=== PATIENT | female | born 1990 | race Caucasian/White ===

== ENCOUNTER 2017-02-10 11:47 | Emergency (ER) | payer OTHER ==
[~2017-02-10] VITALS: Ht 152.4 cm; Wt 126.1 kg
[~2017-02-10 11:47] MED LIST: BUSPIRONE HCL10 MG PO; CITALOPRAM HBR20 MG PO; CITALOPRAM HBR40 MG PO; CYCLOBENZAPRINE10 MG PO; NORCO 10-325 T1 EACH PO; PRENATAL VITAM1 EAC7 PO; SUDAFED 12 HOU120 MG PO; TYLENOL325 MG PO; ZOFRAN ODT8 MG PO
== END 2017-02-10 12:05 | disposition home or self-care (01) ==
LOC: ED 11:47
DX: Z00.8 Encounter for other general examination (principal)

== ENCOUNTER 2017-02-20 17:01 | Emergency (ER) | payer OTHER ==
[~2017-02-20] VITALS: Ht 152.4 cm; Wt 126.1 kg
== END 2017-02-20 17:30 | disposition home or self-care (01) ==
LOC: ED 17:01
DX: Z00.8 Encounter for other general examination (principal)

== ENCOUNTER 2017-03-31 11:26 | Emergency (ER) | payer OTHER ==
[~2017-03-31] VITALS: Ht 152.4 cm; Wt 118.4 kg
[2017-03-31] MEDS ORDERED: METHYLPREDNISOLO4 M1 PO (15:35)
[2017-03-31] MEDS ORDERED: ALBUTEROL2.5 MG/3 M INH (15:35)
[2017-04-01] MEDS ORDERED: MILLIPRED DP5 MG PO (14:06)
== END 2017-03-31 15:59 | disposition home or self-care (01) ==
LOC: ED 11:26
DX: R06.02 Shortness of breath (principal); R06.2 Wheezing; G43.909 Migraine, unspecified, not intractable, without status migrainosus; Z87.891 Personal history of nicotine dependence; Z90.89 Acquired absence of other organs; Z88.0 Allergy status to penicillin; Z79.899 Other long term (current) drug therapy
CPT/HCPCS: 71020; 94640; 94644; 99283

== ENCOUNTER 2017-04-01 13:48 | Observation (INO) | payer OTHER ==
[~2017-04-01] VITALS: Ht 152.4 cm; Wt 118.4 kg
[~2017-04-01 13:48] MED LIST changes: +ALBUTEROL2.5 MG/3 M INH; +METHYLPREDNISOLO4 M1 PO
[2017-04-01] MEDS ORDERED: MILLIPRED DP5 MG PO (14:06)
--- NOTE | 2017-04-01 21:32 | NUR ---
PT ARRIVED TO ROOM 126 AT 1940. PT ON RA AT THE TIME SPO2 92-94% ON RA. SPO2 DECREASED TO 88-89%. PLACED ON OXYMASK 2L. PT UNABLE TO TOLERATE NC DUE TO ANXIETY. PT HAS SIGNIFICANT OTHER, 4 YEAR OLD AND 7 MO. BABY AT BEDSIDE. REVIEWED MEDICATIONS WITH HIGINIO AND DR TORRES. PT CURRENTLY BABY. DR TORRES REVIEWED MEDICATION SAFETY FOR . EXPLAINED TO PT. PT REQUESTS TO SAVE BREASTMILK. PUMP PROVIDED. BABY AND CHILD LEFT WITH /SIGNIFICANT OTHER FOR THE EVENING. ADMISSION ASSESSMENT COMPLETE. NO FURTHER NEEDS.
--- NOTE | 2017-04-01 23:05 | NUR ---
ASSISTED PT WITH HOSPITAL BREASTPUMP. PT REMAINS ON PULSE OX MONITOR. SPO2 91-92% ON RA.
--- NOTE | 2017-04-02 00:24 | NUR ---
PT ON OXYMASK 2L, ASLEEP. SPO2 95%, HR 89.
--- NOTE | 2017-04-02 04:26 | NUR ---
IN TO ASSESS PT AT 0246. PT ASLEEP. VS TAKEN. OXYMASK ON PT. PT USED BREASTPUMP, MILK TO FRIDGE.
--- NOTE | 2017-04-02 06:00 | NUR ---
IN TO ASSESS PT. PT UP TO BR TO VOID. PLACED ON RA TRIAL. SPO2 93% ON RA.
--- NOTE | 2017-04-02 06:04 | NUR ---
PT HAD 200ML OUT BREASTMILK.
--- NOTE | 2017-04-02 06:48 | NUR ---
PT UP TO SHOWER.
--- NOTE | 2017-04-02 07:59 | NUR ---
PT AWAKE SITTING UP IN BED EATING BREAKFAST. ASSESSMENT COMPLETED, LUNGS WITH COARSE SOUNDS AND FEW EXPIRATORY WHEEZES. C/O OF SINUS DISCOMFORT "12/24".
--- NOTE | 2017-04-02 08:08 | NUR ---
PT MEDICATED WITH TYLENOL 650 MG PO.
--- NOTE | 2017-04-02 08:41 | NUR ---
R.T. HERE AND NEB TX GIVEN.
[2017-04-02] MEDS ORDERED: CEFPODOXIME PR200 MG PO (09:22)
[2017-04-02] MEDS ORDERED: CLINDAMYCIN HC300 MG PO (09:22)
--- NOTE | 2017-04-02 09:23 | NUR ---
DR. TORRES IN TO ASSESS PT. A.M. MEDS GIVEN
[2017-04-02] MEDS ORDERED: ALBUTEROL2.5 MG/3 M INH (09:24)
[2017-04-02] MEDS ORDERED: SUDAFED 12 HOU120 MG PO (09:24)
[2017-04-02] MEDS ORDERED: DELTASONE20 MG PO (09:27)
[2017-04-02] MEDS ORDERED: FLUTICASONE PRO16 GM NAS (09:27)
[2017-04-02] MEDS ORDERED: NICORETTE4 M2 BUCCAL (09:27)
[2017-04-02] MEDS ORDERED: TRUNEB NEBULIZ1 EACH INH (09:31)
--- NOTE | 2017-04-02 10:40 | NUR ---
FAXED CHART NOTES INCLUDING H AND P, AND DC SUMMARY AND ORDER TO [facility] FOR A NEBULIZER FOR PT. I CALLED AND TALKED WITH STAFF AT [facility] ABOUT PT COMING TO MANAGER SEARCH NEBULIZER
--- NOTE | 2017-04-02 10:40 | NUR ---
SALINE LOCK DC'D WITH CATH INTACT. PHARMACIST IN TO DISCUSS DISCHARGE MEDS. DC INSTRUCTIONS GIVEN AND PT STATES UNDERSTANDING. PT DC'D AMBULATORY WITH PLANT ATTENDANT.
== END 2017-04-02 10:45 | disposition home or self-care (01) ==
LOC: ED 13:48 → MS 13:49 → CCU 13:49
PROVIDERS: ADMIT Internal Medicine
DX: J45.901 Unspecified asthma with (acute) exacerbation (principal); J01.41 Acute recurrent pansinusitis; B96.89 Other specified bacterial agents as the cause of diseases classified elsewhere; F41.8 Other specified anxiety disorders; E66.9 Obesity, unspecified; Z88.0 Allergy status to penicillin; Z79.52 Long term (current) use of systemic steroids; Z79.899 Other long term (current) drug therapy; Z87.891 Personal history of nicotine dependence; Z23 Encounter for immunization
CPT/HCPCS: 80053; 83605; 85025; 90674; 94640; 94644; 94667; 96374; 96376; 99285; G0008; G0378; J2920; J2930

== ENCOUNTER → 2017-08-09 | Emergency (ER) | payer OTHER ==
[~2017-08-09] VITALS: Ht 152.4 cm; Wt 118.4 kg
[~2017-08-09] MED LIST changes: +CEFPODOXIME PR200 MG PO; +CELEXA40 MG PO; +CLINDAMYCIN HC300 MG PO; +DELTASONE20 MG PO; +FLUTICASONE PRO16 GM NAS; +MILLIPRED DP5 MG PO; +NICORETTE4 M2 BUCCAL; +OXYCODONE HCL5 MG PO; +RA FISH OIL 1,1 EAC2 PO; +SYMBICORT 16010.2 GM INH; +TRUNEB NEBULIZ1 EACH INH; +VENTOLIN HFA18 GM
== END ==
LOC: ED 23:51
DX: J45.909 Unspecified asthma, uncomplicated (principal); J06.9 Acute upper respiratory infection, unspecified; Z87.891 Personal history of nicotine dependence; Z88.0 Allergy status to penicillin; Z79.899 Other long term (current) drug therapy
CPT/HCPCS: 99282; J1100

== ENCOUNTER 2017-09-10 07:00 | Day surgery (SDC) | payer OTHER ==
[~2017-09-10] VITALS: Ht 152.4 cm; Wt 124.7 kg
[~2017-09-10 07:00] MED LIST changes: -OXYCODONE HCL5 MG PO
--- NOTE | 2017-09-10 09:54 | NUR ---
09/10/17 0954 Amanda De Leon 0945 PATIENT ARRIVES TO PACU AWAKE, BUT DROWSY. RESP EVEN AND UNLABORED, COARSE LUNG SOUNDS WITH WHEEZING. PATIENT FEELS LIKE SHE CAN'T BREATHE BECAUSE SHE CANT BREATHE THROUGH HER NOSE, EXPLAINED TO PATIENT SHE HAS PACKING IN HER NOSE WHICH CANNOT BE REMOVED UNTIL TOMORROW BY THE DR IN THE OFFICE. PATIENT AGREES, DENIES PAIN OR NAUSEA. 0948 DUONEB STARTED PER FARM CREW MEMBER REQUEST. 0950 PATIENT SITTING UP ON STRETCHER. CONTINUES TO BE UPSET THAT SHE CANNOT BREATHE THROUGH HER NOSE. ALSO STARTING TO HAVE PAIN IN NOSE. DENIES NAUSEA.
--- NOTE | 2017-09-10 11:29 | NUR ---
LE 1125: PT ARRIVED FROM PACU, AWAKE TALKING WITH STAFF. PT C/O BEING HOT, COLD AIR PLACED. DENIES NAUSEA. C/O 8/10 HEAD AND NECK PAIN. ADVISE PT IF SHE IS ABLE TO HAVE SOME FOOD WILL INSPECTOR RAW QUARTZ ORAL PAIN MEDICATION. WATER, SODA AND JELLO GIVEN. RX GIVEN TO TO TAKE TO PHARMACY. VITALS STABLE, NO FURTHER NEEDS. CALL LIGHT IN REACH.
--- NOTE | 2017-09-10 11:31 | NUR ---
LE 1055 IN TO CHECK ON PT, PT EATING. DENIES NAUSEA. PAIN MEDICATION GIVEN. NO FURTHER NEEDS AT THIS TIME. CALL LIGHT IN REACH. PT WATCHING TV AND TALKING WITH AT BEDSIDE.
--- NOTE | 2017-09-10 11:44 | NUR ---
LE 1130 IN TO CHECK ON PT, VITALS TAKEN. VITALS TAKEN, STABLE. PT ASKING IF SHE CAN GO HOME. PT ASSISTED TO SIDE OF BED. DENIES DIZZINESS OR NAUSEA. PT ASSISTED TO STAND AND AMBULATE, TOLERATED WELL. IV DC'D. PT DRESSING WITH THE HELP OF . TOLERATED WELL. DISCHARGE INSTRUCTION AND FOLLOW UP APPOINTMENT GIVEN. ALL QUESTIONS ANSWERED FOR PT AND BOYFRIEND. DISCUSSED LEAVING PACK UNTIL APPOINTMENT TOMORROW. PT UNDERSTANDS. PT AMBULATES TO , WHEELED OUT BY VOLUNTEER.
--- NOTE | 2017-10-01 13:32 | OR ---
[facility] [address], [place] [address] Signed DATE OF OPERATION: 09/10/2017 SURGEON: Akbar Flowers MD PREOPERATIVE DIAGNOSES: 1. Septal deformity. 2. Inferior turbinate hypertrophy. 3. Bilateral ethmoid sinusitis. POSTOPERATIVE DIAGNOSES: 1. Septal deformity. 2. Inferior turbinate hypertrophy. 3. Bilateral ethmoid sinusitis. PROCEDURES: 1. Septoplasty. 2. Cautery inferior turbinates. 3. Bilateral intranasal ethmoidectomy. ANESTHESIA: General orotracheal; BALLPOINT PEN CARTRIDGE TESTER, Lida Walker. PREOPERATIVE HISTORY: Alonso is a 27-year-old lady with a long history of sinus nasal problems. She has inferior turbinate hypertrophy, unresponsive to appropriate medications causing nasal obstruction, also septal deformity, chronic sinusitis unresolved after appropriate medications with CT findings positive for ethmoid opacification. She was taken to the operating for the above-mentioned procedures. OPERATIVE PROCEDURE AND FINDINGS: After informed consent, the patient was taken to the operating room, placed in supine position, where general orotracheal anesthesia was induced. The patient and procedure were verified. The preop CT was viewed throughout. The patient received preoperative intranasal oxymetazoline and intravenous Ancef. Headlight speculum exam of the nasal cavity showed good decongestion of the inferior turbinates, septal deformity on the right side obstructive. A 1% lidocaine with epinephrine was injected on the right side of the septum over the septal deformity. Mucosa was elevated with a Lenora elevator. All deviated septal bone cartilage was then excised with the Anderson. The septum was medialized and airway improved in this manner. Electronically Signed By: AKBAR FLOWERS MD 10/01/17 1332 PATIENT NAME: ALONSO MCKEON OPERATIVE REPORT DATE OF : [birth year] REPORT #: [id number] PHYSICIAN: AKBAR FLOWERS MD PCP: ANJU MO REPORT IS CONFIDENTIAL AND NOT TO BE RELEASED WITHOUT AUTHORIZATION [facility] [address], [place] [address] Signed The ethmoidectomy was then performed starting on the left side. The middle turbinate was medialized. Ethmoid bulla taken down with the Anderson. Anterior ethmoid air cells were opened with the Anderson. There was mild mucosal thickening. The middle meatal antrostomy was made with a curved ring curette and the antrostomy widened with the Anderson. The same ethmoid procedure was performed on the right side. A Marshall pack coated with Neosporin was placed one on each side in the middle meatus. Inferior turbinates were then cauterized starting on the right side with a long handle needle point cautery. Multiple passes submucosal in the inferior turbinate starting anteriorly extending all the way posteriorly on the medial and inferior surface. Excellent decongestion of the inferior turbinate was obtained in this manner. Minimal bleeding stopped afterwards. The same procedure on the left inferior turbinate. Trimmed Merocel pack was then placed, one piece on each side, tied anteriorly over a pad. The pharynx was suctioned clear of blood and secretions. The patient was then awakened, extubated, and transported to the recovery room in good condition. COMPLICATIONS: No complications. BLOOD LOSS: Minimal. SPECIMEN: To pathology. DRAINS: No drains. PACKING: Two pieces of Merocel, each nostril. Akbar Flowers MD GC/MODL /[id number] Electronically Signed By: AKBAR FLOWERS MD 10/01/171331 PATIENT NAME: ALONSO MCKEON OPERATIVE REPORT DATE OF : [birth year] REPORT #: [id number] PHYSICIAN: AKBAR FLOWERS MD PCP: ANJU MO REPORT IS CONFIDENTIAL AND NOT TO BE RELEASED WITHOUT AUTHORIZATION [facility] [address] [place] [address] [place], [place] [address] Signed Copies: ~ Electronically Signed By: AKBAR FLOWERS MD 10/01/171331 PATIENT NAME: ALONSO MCKEON OPERATIVE REPORT DATE OF : [birth year] REPORT #: [id number] PHYSICIAN: AKBAR FLOWERS MD PCP: ANJU MO REPORT IS CONFIDENTIAL AND NOT TO BE RELEASED WITHOUT AUTHORIZATION
== END 2017-09-10 11:40 | disposition home or self-care (01) ==
LOC: DS 07:00
PROVIDERS: Otolaryngology
PROC: 095L0ZZ Destruction of Nasal Turbinate, Open Approach (ICD-10-PCS; 2017-09-10)
PROC: 09BM0ZZ Excision of Nasal Septum, Open Approach (ICD-10-PCS; 2017-09-10)
PROC: 09BV0ZZ Excision of Left Ethmoid Sinus, Open Approach (ICD-10-PCS; principal; 2017-09-10 08:00)
PROC: 09BU0ZZ Excision of Right Ethmoid Sinus, Open Approach (ICD-10-PCS; 2017-09-10 08:00)
PROC: 095L0ZZ Destruction of Nasal Turbinate, Open Approach (ICD-10-PCS; 2017-09-10 08:00)
DX: J32.2 Chronic ethmoidal sinusitis (principal); J34.2 Deviated nasal septum; J34.3 Hypertrophy of nasal turbinates; J33.9 Nasal polyp, unspecified; F17.210 Nicotine dependence, cigarettes, uncomplicated; J45.909 Unspecified asthma, uncomplicated; F32.9 Major depressive disorder, single episode, unspecified; Z88.0 Allergy status to penicillin; Z79.899 Other long term (current) drug therapy
CPT/HCPCS: 00160; 88305; 88311; J0330; J0690; J1100; J2250; J2270; J2405; J2704; J3010; J7120

== ENCOUNTER 2017-09-13 20:14 | Emergency (ER) | payer OTHER ==
[~2017-09-13] VITALS: Ht 152.4 cm; Wt 124.7 kg
[2017-09-13] MEDS ORDERED: OXYCODONE HCL5 MG PO (20:27)
== END 2017-09-14 00:52 | disposition home or self-care (01) ==
LOC: ED 20:14
DX: Z76.0 Encounter for issue of repeat prescription (principal); G89.18 Other acute postprocedural pain; J34.89 Other specified disorders of nose and nasal sinuses; F32.9 Major depressive disorder, single episode, unspecified; F41.9 Anxiety disorder, unspecified; J45.909 Unspecified asthma, uncomplicated; E78.00 Pure hypercholesterolemia, unspecified; Z88.0 Allergy status to penicillin; Z88.5 Allergy status to narcotic agent; Z79.899 Other long term (current) drug therapy; Z79.51 Long term (current) use of inhaled steroids
CPT/HCPCS: 96372; 99282; J1885

== ENCOUNTER 2017-12-20 11:40 | Emergency (ER) | payer OTHER ==
[~2017-12-20] VITALS: Ht 152.4 cm; Wt 124.7 kg
[~2017-12-20 11:40] MED LIST changes: +OXYCODONE HCL5 MG PO
[2017-12-20] MEDS ORDERED: IPRAT-ALBUT 0.5-3 ML INH (13:40)
[2017-12-20] MEDS ORDERED: PREDNISONE20 MG PO (13:40)
[2017-12-20] MEDS ORDERED: FLONASE ALLERG9.9 ML NAS (13:40)
== END 2017-12-20 13:53 | disposition home or self-care (01) ==
LOC: ED 11:40
DX: J45.901 Unspecified asthma with (acute) exacerbation (principal); F32.9 Major depressive disorder, single episode, unspecified; F41.9 Anxiety disorder, unspecified; E78.00 Pure hypercholesterolemia, unspecified; F17.200 Nicotine dependence, unspecified, uncomplicated; Z88.0 Allergy status to penicillin; Z88.5 Allergy status to narcotic agent; Z79.51 Long term (current) use of inhaled steroids; Z79.899 Other long term (current) drug therapy
CPT/HCPCS: 94640; 99283; J7512

== ENCOUNTER 2018-01-01 14:51 | Emergency (ER) | payer OTHER ==
[~2018-01-01] VITALS: Ht 152.4 cm; Wt 131.5 kg
[~2018-01-01 14:51] MED LIST changes: +FLONASE ALLERG9.9 ML NAS; +IPRAT-ALBUT 0.5-3 ML INH; +PREDNISONE20 MG PO
[2018-01-01] MEDS ORDERED: PROTONIX40 MG PO (17:26)
== END 2018-01-01 17:46 | disposition home or self-care (01) ==
LOC: ED 14:51
DX: R10.9 Unspecified abdominal pain (principal); F32.9 Major depressive disorder, single episode, unspecified; F41.9 Anxiety disorder, unspecified; F17.200 Nicotine dependence, unspecified, uncomplicated; Z88.0 Allergy status to penicillin; Z88.5 Allergy status to narcotic agent
CPT/HCPCS: 76705; 80053; 81001; 82150; 83690; 84703; 85025; 96361; 96374; 96375; 99284; J1170; J1885; J2405; J7030

== ENCOUNTER 2018-02-05 21:18 | Emergency (ER) | payer OTHER ==
[~2018-02-05] VITALS: Ht 152.4 cm; Wt 127.0 kg
[~2018-02-05 21:18] MED LIST changes: +PROTONIX40 MG PO
== END 2018-02-05 23:22 | disposition home or self-care (01) ==
LOC: ED 21:18
DX: R10.9 Unspecified abdominal pain (principal); G43.909 Migraine, unspecified, not intractable, without status migrainosus; F32.9 Major depressive disorder, single episode, unspecified; F41.9 Anxiety disorder, unspecified; E78.00 Pure hypercholesterolemia, unspecified; F17.200 Nicotine dependence, unspecified, uncomplicated; Z88.0 Allergy status to penicillin; Z88.5 Allergy status to narcotic agent; Z79.899 Other long term (current) drug therapy
CPT/HCPCS: 74176; 81001; 84703; 99284

== ENCOUNTER 2018-02-08 21:19 | Emergency (ER) | payer OTHER ==
[~2018-02-08] VITALS: Ht 152.4 cm; Wt 127.0 kg
== END 2018-02-08 21:47 | disposition home or self-care (01) ==
LOC: ED 21:19
DX: R10.9 Unspecified abdominal pain (principal); F17.200 Nicotine dependence, unspecified, uncomplicated; Z88.0 Allergy status to penicillin; Z88.5 Allergy status to narcotic agent; Z79.899 Other long term (current) drug therapy
CPT/HCPCS: 99283

== ENCOUNTER 2022-10-15 16:32 | Emergency (ER) | payer MEDICAID ==
[~2022-10-15] VITALS: Ht 152.4 cm; Wt 105.7 kg
--- NOTE | ~2022-10-15 | EKG ---
[facility] [address] [facility] [place], [place] [address] Draft EK completed, results pending confirmation PATIENT NAME: ALONSO MCKEON Electrocardiogram DATE OF : [birth year] PHYSICIAN: PRELIMINARY REPORT #: [id number] REPORT IS CONFIDENTIAL AND NOT TO BE RELEASED WITHOUT AUTHORIZATION
[2022-10-15] MEDS ORDERED: CYCLOBENZAPRINE10 MG PO (18:01)
[2022-10-15 19:50] VITALS: BP 120/52
== END 2022-10-15 19:51 | disposition home or self-care (01) ==
LOC: ED 16:32
DX: G43.909 Migraine, unspecified, not intractable, without status migrainosus (principal); R07.89 Other chest pain; J45.909 Unspecified asthma, uncomplicated; Z88.0 Allergy status to penicillin; Z87.891 Personal history of nicotine dependence; Z88.5 Allergy status to narcotic agent
CPT/HCPCS: 36415; 71045; 80053; 83735; 84484; 85025; 85379; 85610; 93005; 93010; J1200; J1885; J2765; J3030; J7030

== ENCOUNTER 2022-11-13 11:37 | Emergency (ER) | payer OTHER ==
[~2022-11-13] VITALS: Ht 152.4 cm; Wt 108.0 kg
--- NOTE | ~2022-11-13 | EKG ---
[facility] [address] [facility] [place], [place] [address] Draft EK completed, results pending confirmation PATIENT NAME: ALONSO MCKEON Electrocardiogram DATE OF : [birth year] PHYSICIAN: PRELIMINARY REPORT #: [id number] REPORT IS CONFIDENTIAL AND NOT TO BE RELEASED WITHOUT AUTHORIZATION
--- OUTSIDE RECORDS SUMMARY | 2022-11-13 11:44 | XMS ---
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 Care History Medical/Surgical 02/10/2018 [facility] - CHW CALLED DR CORREIA DISCUSSED URGENCY OF PATIENT BEING SEEN AND ESTABLISHED WITH A PCP. - PATIENT NOW HAS AN APT ON 02/12/18 @ 2:30 TO BE ESTABLISHED WITH DR CORREIA PATIENT PCP. 02/06/2018 [facility] - Patient is currently established with [facility]. If patient is seen in the ED during business hours. Please contact CHWs at [facility]. - PATIENT HAS AN APT ON 03/18/[address] CORREIA PATIENT PCP. Care Recommendation: This patient has had 5 or more Emergency Department visits in the last 12 months.\T\nbsp; Patient requires education on the scope and purpose of the ED as an acute care provider not a Primary Care Provider and should not be utilized for chronic conditions.\T\nbsp; These are guidelines and the provider should exercise clinical judgment when providing care. E.D. VISIT COUNT (12 MO.) 1 [facility] H. 2 [facility]. TOTAL 3 NOTE: Visits indicate total known visits. ED/UCC VISIT TRACKING (12 MO.) 11/13/2022 11:38 [facility] TYPE: Emergency COMPLAINT: - CHEST PAIN, R ARM PAIN 10/15/2022 16:33 [facility] TYPE: Emergency COMPLAINT: - CHEST PAIN DIAGNOSES: - Allergy status to narcotic agent - Allergy status to penicillin - Headache, unspecified - Migraine, unspecified, not intractable, without status migrainosus - Other chest pain - Personal history of nicotine dependence - Unspecified asthma, uncomplicated 12/21/2021 18:25 [facility]. TYPE: Emergency COMPLAINT: - chest pain DIAGNOSES: - Cardiac arrhythmia, unspecified - Cardiomegaly - Chest pain, unspecified - Morbid (severe) obesity due to excess calories - chest pain INPATIENT VISIT TRACKING (12 MO.) No inpatient visits to display in this time frame [email or web address]
[2022-11-13] MEDS ORDERED: BUSPIRONE HCL10 MG PO (11:58)
[2022-11-13] MEDS ORDERED: BUDESONIDE-FO10.2 G1 INH (11:58)
[2022-11-13] MEDS ORDERED: VENTOLIN HFA18 GM INH (11:58)
[2022-11-13 14:09] VITALS: BP 126/92
== END 2022-11-13 14:11 | disposition home or self-care (01) ==
LOC: ED 11:37
DX: M79.601 Pain in right arm (principal); M25.511 Pain in right shoulder; R07.9 Chest pain, unspecified; J45.909 Unspecified asthma, uncomplicated; Z87.891 Personal history of nicotine dependence; Z88.0 Allergy status to penicillin; Z88.5 Allergy status to narcotic agent; Z79.899 Other long term (current) drug therapy
CPT/HCPCS: 36415; 84484; 85025; 93005; 93010; J1885

== ENCOUNTER 2022-12-21 11:28 | Emergency (ER) | payer OTHER ==
[~2022-12-21] VITALS: Ht 152.4 cm; Wt 112.3 kg
--- OUTSIDE RECORDS SUMMARY | ~2022-12-21 | XMS | Continuity of Care Document ---
Demographics + + + | Address | [address] | | | [place] [address] | + + + | Preferred Language | Unknown | + + + | Marital Status | Never | + + + | Mandaeism Affiliation | Unknown | + + + | Race | White | + + + | Ethnic Group | Not or | + + + Author + + + | Author | [facility] | + + + | Organization | [facility] | + + + | Address | [address] [facility] | | | [place] [address] | + + + | Phone | | + + + Care Team Providers + + + + | Care Disability Manager Name | Role | Phone | + + + + Unavailable | Unavailable | + + + + Unavailable | Unavailable | + + + + Allergies and Intolerances + + + + + | date | description | facility | type | + + + + + | (no date) | Urticaria | [facility] (unknown[facility] | | + + + + + | (no date) | Hydrocodone | [facility] | (unknown) | | | | Hospital | | + + + + + | (no date) | Mild | [facility] | (unknown) | | | [facility] Hospital | | + + + + + | (no date) | Hydrocodone | [facility] | (unknown) | | | | Hospital | | + + + + + | (no date) | Hydrocodone | [facility] | (unknown) | | | | Hospital | | + + + + + | (no date) | Penicillin | [facility] | (unknown) | | | [facility] Hospital | | + + + + + | (no date) | Penicillin | [facility] | (unknown) | | | | Hospital | | + + + + + | (no date) | Penicillin | [facility] | (unknown) | | | | Hospital | | + + + + + | (no date) | Penicillin | [facility] | (unknown) | | | | Hospital | | + + + + + Encounters No information. Functional Status No information. Immunizations + + + + | date | description | facility | + + + + | 2017-04-02 00:00 | Influenza, Seasonal, | [facility] | | | Injectable, Preservative | | | | Free | | + + + + Medications + + + + | date | description | facility | + + + + | 2022-10-15 00:00 | OXYCODONE HCL | [facility] | + + + + | 2022-11-13 00:00 | OXYCODONE HCL | [facility] | + + + + | 2017-04-02 00:00 | PSEUDOEPHEDRINE HCL | [facility] | + + + + | 2022-10-15 00:00 | PSEUDOEPHEDRINE HCL | [facility] | + + + + | 2022-11-13 00:00 | PSEUDOEPHEDRINE HCL | [facility] | + + + + | 2022-10-15 00:00 | PREDNISOLONE | [facility] | + + + + | 2022-11-13 00:00 | PREDNISOLONE | [facility] | + + + + | 2022-10-15 00:00 | BUDESONIDE/FORMOTEROL | [facility] | | | FUMARATE | | + + + + | 2022-11-13 00:00 | BUDESONIDE/FORMOTEROL | [facility] | | | FUMARATE | | + + + + | 2022-11-13 00:00 | Budesonide/Formoterol | [facility] | | | Fumarate | | + + + + | 2017-04-02 00:00 | FLUTICASONE PROPIONATE 50 | [facility] | | | MCG | | + + + + | 2022-10-15 00:00 | CITALOPRAM HYDROBROMIDE | [facility] | + + + + | 2022-11-13 00:00 | CITALOPRAM HYDROBROMIDE | [facility] | + + + + | 2017-04-02 00:00 | PREDNISONE | [facility] | + + + + | 2017-04-02 00:00 | CLINDAMYCIN HCL | [facility] | + + + + | 2017-04-02 00:00 | CEFPODOXIME PROXETIL | [facility] | + + + + | 2022-10-15 00:00 | CITALOPRAM HYDROBROMIDE | [facility] | + + + + | 2022-11-13 00:00 | CITALOPRAM HYDROBROMIDE | [facility] | + + + + | 2017-12-20 00:00 | predniSONE | [facility] | + + + + | 2017-03-31 00:00 | ALBUTEROL SULFATE | [facility] | + + + + | 2022-10-15 00:00 | CYCLOBENZAPRINE HCL | [facility] | + + + + | 2022-11-13 00:00 | CYCLOBENZAPRINE HCL | [facility] | + + + + | 2022-10-15 00:00 | HYDROCODONE/APAP | [facility] | | | (10-325MG) | | + + + + | 2022-11-13 00:00 | HYDROCODONE/APAP | [facility] | | | (10-325MG) | | + + + + | 2022-11-13 00:00 | ALBUTEROL SULFATE | [facility] | + + + + | 2022-10-15 00:00 | BUSPIRONE HCL | [facility] | + + + + | 2022-11-13 00:00 | BUSPIRONE HCL | [facility] | + + + + | 2022-10-15 00:00 | ONDANSETRON | [facility] | + + + + | 2022-11-13 00:00 | ONDANSETRON | [facility] | + + + + | 2017-04-02 00:00 | Nicotine Polacrilex | [facility] | + + + + Problems + + + + | date | description | facility | + + + + | 2015-11-21 00:00 | Migraine headache | [facility] | + + + + | 2017-02-10 00:00 | Encounter for medical | [facility] | | | screening examination | | + + + + | 2017-03-31 00:00 | Shortness of breath | [facility] | + + + + | 2017-03-31 00:00 | Wheezing on auscultation | [facility] | + + + + | 2017-04-01 00:00 | Exacerbation of asthma | [facility] | + + + + | 2017-04-02 00:00 | Asthma with status | [facility] | | | asthmaticus | | + + + + | 2017-08-10 00:00 | Upper respiratory | [facility] | | | infection with cough and | | | | congestion | | + + + + | 2017-08-10 00:00 | Acute asthma | [facility] | + + + + | 2017-09-14 00:00 | Postoperative pain | [facility] | + + + + | 2017-09-14 00:00 | Pain of nose | [facility] | + + + + | 2017-09-14 00:00 | Encounter for medication | [facility] | | | refill | | + + + + | 2018-01-01 00:00 | Nonspecific abdominal pain | [facility] | | | | | + + + + | 2018-02-05 00:00 | Right flank pain | [facility] | + + + + | 2022-10-15 00:00 | Chest wall pain | [facility] | + + + + | 2022-11-13 00:00 | Pain of right upper | [facility] | | | extremity | | + + + + Procedures No information. Results/Labs +--------+--------+ + +---------+--------+ + | test | date | author | facility | value | unit | | | | | | | | | interpreta | | | | | | | | tion | +--------+--------+ + +---------+--------+ + + + | Result panel 1 | + + + + + + +---------+ + + | (unknown) | (no date) | (unknown) | [facility]no | (units | (unknown) | | [facility] value) | [facility]) | [facility] | | | | + + + + +---------+ + + + + | Result panel 2 | + + + + + + +---------+ + + | (unknown) | (no date) | (unknown) | [facility] | (no | (units | (unknown) | | | | [facility] | value) | unknown) | | | | [facility] | | | | + + + + +---------+ + + + + | Result panel 3 | + + + + + + +---------+ + + | (unknown) | (no date) | (unknown) | [facility] | (no | (units | (unknown) | | | | [facility] | value) | unknown) | | | | [facility] | | | | + + + + +---------+ + + + + | Result panel 4 | + + + + + + +---------+ + + | (unknown) | (no date) | (unknown) | [facility] | (no | (units | (unknown) | | | | [facility] | value) | unknown) | | | | [facility] | | | | + + + + +---------+ + + + + | Result panel 5 | + + + + + + +---------+ + + | (unknown) | (no date) | (unknown) | [facility] | (no | (units | (unknown) | | | | [facility] | value) | unknown) | | | | [facility] | | | | + + + + +---------+ + + + + | Result panel 6 | + + + + + + +---------+ + + | (unknown) | (no date) | (unknown) | [facility] | (no | (units | (unknown) | | | | [facility] | value) | unknown) | | | | [facility] | | | | + + + + +---------+ + + + + | Result panel 7 | + + + + + + +---------+ + + | (unknown) | (no date) | (unknown) | [facility] | (no | (units | (unknown) | | | | | [facility] | value) | unknown) | | | | | [facility] | | | | + + + + +---------+ + + + + | Result panel 8 | + + + + + + +---------+ + + | (unknown) | (no date) | (unknown) | [facility] | (no | (units | (unknown) | | | | | [facility] | value) | unknown) | | | | | [facility] | | | | + + + + +---------+ + + + + | Result panel 9 | + + + + + + +---------+ + + | (unknown) | (no date) | (unknown) | [facility] | (no | (units | (unknown) | | | | | [facility] | value) | unknown) | | | | | [facility] | | | | + + + + +---------+ + + + + | Result panel 10 | + + + + + + +---------+ + + | (unknown) | (no date) | (unknown) | [facility] | (no | (units | (unknown) | | | | | [facility] | value) | unknown) | | | | | [facility] | | | | + + + + +---------+ + + + + | Result panel 11 | + + + + + + +---------+ + + | (unknown) | (no date) | (unknown) | [facility] | (no | (units | (unknown) | | | | | [facility] | value) | unknown) | | | | | [facility] | | | | + + + + +---------+ + + + + | Result panel 12 | + + + + + + +---------+ + + | (unknown) | (no date) | (unknown) | [facility] | (no | (units | (unknown) | | | | | [facility] | value) | unknown) | | | | | [facility] | | | | + + + + +---------+ + + + + | Result panel 13 | + + + + + + +---------+ + + | (unknown) | (no date) | (unknown) | [facility] | (no | (units | (unknown) | | | | | [facility] | value) | unknown) | | | | | [facility] | | | | + + + + +---------+ + + + + | Result panel 14 | + + + + + + +---------+ + + | (unknown) | (no date) | (unknown) | [facility] | (no | (units | (unknown) | | | | | [facility] | value) | unknown) | | | | | [facility] | | | | + + + + +---------+ + + + + | Result panel 15 | + + + + + + +---------+ + + | (unknown) | (no date) | (unknown) | [facility] | (no | (units | (unknown) | | | | | [facility] | value) | unknown) | | | | | [facility] | | | | + + + + +---------+ + + + + | Result panel 16 | + + + + + + +---------+ + + | (unknown) | (no date) | (unknown) | [facility] | (no | (units | (unknown) | | | | | [facility] | value) | unknown) | | | | | [facility] | | | | + + + + +---------+ + + + + | Result panel 17 | + + + + + + +---------+ + + | (unknown) | (no date) | (unknown) | [facility] | (no | (units | (unknown) | | | | | [facility] | value) | unknown) | | | | | [facility] | | | | + + + + +---------+ + + + + | Result panel 18 | + + + + + + +---------+ + + | (unknown) | (no date) | (unknown) | [facility] | (no | (units | (unknown) | | | | | [facility] | value) | unknown) | | | | | [facility] | | | | + + + + +---------+ + + + + | Result panel 19 | + + + + + + +---------+ + + | (unknown) | (no date) | (unknown) | [facility] | (no | (units | (unknown) | | | | | [facility] | value) | unknown) | | | | | [facility] | | | | + + + + +---------+ + + + + | Result panel 20 | + + + + + + +---------+ + + | (unknown) | (no date) | (unknown) | [facility] | (no | (units | (unknown) | | | | | [facility] | value) | unknown) | | | | | [facility] | | | | + + + + +---------+ + + + + | Result panel 21 | + + + + + + +---------+ + + | (unknown) | (no date) | (unknown) | [facility] | (no | (units | (unknown) | | | | | [facility] | value) | unknown) | | [facility] | | [facility] | | | | + + + + +---------+ + + + + | Result panel 22 | + + + + + + +---------+ + + | (unknown) | (no date) | (unknown) | [facility] | (no | (units | (unknown) | | | | | [facility] | value) | unknown) | | | | | [facility] | | | | + + + + +---------+ + + + + | Result panel 23 | + + + + + + +---------+ + + | (unknown) | (no date) | (unknown) | [facility] | (no | (units | (unknown) | | | | | [facility] | value) | unknown) | | | | | [facility] | | | | + + + + +---------+ + + + + | Result panel 24 | + + + + + + +---------+ + + | (unknown) | (no date) | (unknown) | [facility] | (no | (units | (unknown) | | | | | [facility] | value) | unknown) | | [facility] | | [facility] | | | | + + + + +---------+ + + + + | Result panel 25 | + + + + + + +---------+ + + | (unknown) | (no date) | (unknown) | [facility] | (no | (units | (unknown) | | | | | [facility] | value) | unknown) | | | | | [facility] | | | | + + + + +---------+ + + + + | Result panel 26 | + + + + + + +---------+ + + | (unknown) | (no date) | (unknown) | [facility] | (no | (units | (unknown) | | | | | [facility] | value) | unknown) | | | | | [facility] | | | | + + + + +---------+ + + + + | Result panel 27 | + + + + + + +---------+ + + | (unknown) | (no date) | (unknown) | [facility] | (no | (units | (unknown) | | | | | [facility] | value) | unknown) | | | | | [facility] | | | | + + + + +---------+ + + + + | Result panel 28 | + + + + + + +---------+ + + | (unknown) | (no date) | (unknown) | [facility] | (no | (units | (unknown) | | | | | [facility] | value) | unknown) | | [facility] | | [facility] | | | | + + + + +---------+ + + + + | Result panel 29 | + + + + + + +---------+ + + | (unknown) | (no date) | (unknown) | [facility] | (no | (units | (unknown) | | | | | [facility] | value) | unknown) | | | | | [facility] | | | | + + + + +---------+ + + + + | Result panel 30 | + + + + + + +---------+ + + | (unknown) | (no date) | (unknown) | [facility] | (no | (units | (unknown) | | | | | [facility] | value) | unknown) | | | | | [facility] | | | | + + + + +---------+ + + + + | Result panel 31 | + + + + + + +---------+ + + | (unknown) | (no date) | (unknown) | [facility] | (no | (units | (unknown) | | | | | [facility] | value) | unknown) | | | | | [facility] | | | | + + + + +---------+ + + + + | Result panel 32 | + + + + + + +---------+ + + | (unknown) | (no date) | (unknown) | [facility] | (no | (units | (unknown) | | | | | [facility] | value) | unknown) | | | | | [facility] | | | | + + + + +---------+ + + + + | Result panel 33 | + + + + + + +---------+ + + | (unknown) | (no date) | (unknown) | [facility] | (no | (units | (unknown) | | | | | [facility] | value) | unknown) | | | | | [facility] | | | | + + + + +---------+ + + + + | Result panel 34 | + + + + + + +---------+ + + | (unknown) | (no date) | (unknown) | [facility] | (no | (units | (unknown) | | | | | [facility] | value) | unknown) | | [facility] | | [facility] | | | | + + + + +---------+ + + + + | Result panel 35 | + + + + + + +---------+ + + | (unknown) | (no date) | (unknown) | [facility] | (no | (units | (unknown) | | | | | [facility] | value) | unknown) | | [facility] | | [facility] | | | | + + + + +---------+ + + + + | Result panel 36 | + + + + + + +---------+ + + | (unknown) | (no date) | (unknown) | [facility] | (no | (units | (unknown) | | | | | [facility] | value) | unknown) | | [facility] | | [facility] | | | | + + + + +---------+ + + + + | Result panel 37 | + + + + + + +---------+ + + | (unknown) | (no date) | (unknown) | [facility] | (no | (units | (unknown) | | | | | [facility] | value) | unknown) | | | | | [facility] | | | | + + + + +---------+ + + + + | Result panel 38 | + + + + + + +---------+ + + | (unknown) | (no date) | (unknown) | [facility] | (no | (units | (unknown) | | | | | [facility] | value) | unknown) | | | | | [facility] | | | | + + + + +---------+ + + + + | Result panel 39 | + + + + + + +---------+ + + | (unknown) | (no date) | (unknown) | [facility] | (no | (units | (unknown) | | | | | [facility] | value) | unknown) | [facility] | | [facility] | | | | + + + + +---------+ + + + + | Result panel 40 | + + + + + + +---------+ + + | (unknown) | (no date) | (unknown) | [facility] | (no | (units | (unknown) | | | | | [facility] | value) | unknown) | | | | | [facility] | | | | + + + + +---------+ + + + + | Result panel 41 | + + + + + + +---------+ + + | (unknown) | (no date) | (unknown) | [facility] | (no | (units | (unknown) | | | | | [facility] | value) | unknown) | | [facility] | [facility] | | | | + + + + +---------+ + + + + | Result panel 42 | + + + + + + +---------+ + + | (unknown) | (no date) | (unknown) | [facility] | (no | (units | (unknown) | | | | | [facility] | value) | unknown) | | [facility] | [facility] | | | | + + + + +---------+ + + + + | Result panel 43 | + + + + + + +---------+ + + | (unknown) | (no date) | (unknown) | [facility] | (no | (units | (unknown) | | | | | [facility] | value) | unknown) | | | | | [facility] | | | | + + + + +---------+ + + + + | Result panel 44 | + + + + + + +---------+ + + | (unknown) | (no date) | (unknown) | [facility] | (no | (units | (unknown) | | | | | [facility] | value) | unknown) | | | | | [facility] | | | | + + + + +---------+ + + + + | Result panel 45 | + + + + + + +---------+ + + | (unknown) | (no date) | (unknown) | [facility] | (no | (units | (unknown) | | | | | [facility] | value) | unknown) | | | | | [facility] | | | | + + + + +---------+ + + + + | Result panel 46 | + + + + + + +---------+ + + | (unknown) | (no date) | (unknown) | [facility] | (no | (units | (unknown) | | | | | [facility] | value) | unknown) | | | | | [facility] | | | | + + + + +---------+ + + + + | Result panel 47 | + + + + + + +---------+ + + | (unknown) | (no date) | (unknown) | [facility] | (no | (units | (unknown) | | | | | [facility] | value) | unknown) | | | | [facility] | | | | + + + + +---------+ + + + + | Result panel 48 | + + + + + + +---------+ + + | (unknown) | (no date) | (unknown) | [facility] | (no | (units | (unknown) | | | | | [facility] | value) | unknown) | | | | | [facility] | | | | + + + + +---------+ + + + + | Result panel 49 | + + + + + + +---------+ + + | (unknown) | (no date) | (unknown) | [facility] | (no | (units | (unknown) | | | | | [facility] | value) | unknown) | | | | | [facility] | | | | + + + + +---------+ + + + + | Result panel 50 | + + + + + + +---------+ + + | (unknown) | (no date) | (unknown) | [facility] | (no | (units | (unknown) | | | | | [facility] | value) | unknown) | | | | [facility] | | | | + + + + +---------+ + + + + | Result panel 51 | + + + + + + +---------+ + + | (unknown) | (no date) | (unknown) | [facility] | (no | (units | (unknown) | | | | | [facility] | value) | unknown) | | | | | [facility] | | | | + + + + +---------+ + + + + | Result panel 52 | + + + + + + +---------+ + + | (unknown) | (no date) | (unknown) | [facility] | (no | (units | (unknown) | | | | | [facility] | value) | unknown) | | | | | [facility] | | | | + + + + +---------+ + + + + | Result panel 53 | + + + + + + +---------+ + + | (unknown) | (no date) | (unknown) | [facility] | (no | (units | (unknown) | | | | | [facility] | value) | unknown) | | [facility] | [facility] | | | | + + + + +---------+ + + + + | Result panel 54 | + + + + + + +---------+ + + | (unknown) | (no date) | (unknown) | [facility] | (no | (units | (unknown) | | | | | [facility] | value) | unknown) | | | | | [facility] | | | | + + + + +---------+ + + + + | Result panel 55 | + + + + + + +---------+ + + | (unknown) | (no date) | (unknown) | [facility] | (no | (units | (unknown) | | | | | [facility] | value) | unknown) | | | | | [facility] | | | | + + + + +---------+ + + + + | Result panel 56 | + + + + + + +---------+ + + | (unknown) | (no date) | (unknown) | [facility] | (no | (units | (unknown) | | | | | [facility] | value) | unknown) | | | | | [facility] | | | | + + + + +---------+ + + + + | Result panel 57 | + + + + + + +---------+ + + | (unknown) | (no date) | (unknown) | [facility] | (no | (units | (unknown) | | | | | [facility] | value) | unknown) | | | | | [facility] | | | | + + + + +---------+ + + + + | Result panel 58 | + + + + + + +---------+ + + | (unknown) | (no date) | (unknown) | [facility] | (no | (units | (unknown) | | | | | [facility] | value) | unknown) | | | | | [facility] | | | | + + + + +---------+ + + + + | Result panel 59 | + + + + + + +---------+ + + | (unknown) | (no date) | (unknown) | [facility] | (no | (units | (unknown) | | | | | [facility] | value) | unknown) | | [facility] | [facility] | | | | + + + + +---------+ + + + + | Result panel 60 | + + + + + + +---------+ + + | (unknown) | (no date) | (unknown) | [facility] | (no | (units | (unknown) | | | | | [facility] | value) | unknown) | | [facility] | [facility] | | | | + + + + +---------+ + + + + | Result panel 61 | + + + + + + +---------+ + + | (unknown) | (no date) | (unknown) | [facility] | (no | (units | (unknown) | | | | | [facility] | value) | unknown) | | | | [facility] | | | | + + + + +---------+ + + + + | Result panel 62 | + + + + + + +---------+ + + | (unknown) | (no date) | (unknown) | [facility] | (no | (units | (unknown) | | | | | [facility] | value) | unknown) | | | | [facility] | | | | + + + + +---------+ + + + + | Result panel 63 | + + + + + + +---------+ + + | (unknown) | (no date) | (unknown) | [facility] | (no | (units | (unknown) | | | | | [facility] | value) | unknown) | | | | [facility] | | | | + + + + +---------+ + + + + | Result panel 64 | + + + + + + +---------+ + + | (unknown) | (no date) | (unknown) | [facility] | (no | (units | (unknown) | | | | | [facility] | value) | unknown) | | | | | [facility] | | | | + + + + +---------+ + + + + | Result panel 65 | + + + + + + +---------+ + + | (unknown) | (no date) | (unknown) | [facility] | (no | (units | (unknown) | | | | | [facility] | value) | unknown) | | | | [facility] | | | | + + + + +---------+ + + + + | Result panel 66 | + + + + + + +---------+ + + | (unknown) | (no date) | (unknown) | [facility] | (no | (units | (unknown) | | | | | [facility] | value) | unknown) | | | | | [facility] | | | | + + + + +---------+ + + + + | Result panel 67 | + + + + + + +---------+ + + | (unknown) | (no date) | (unknown) | [facility] | (no | (units | (unknown) | | | | | [facility] | value) | unknown) | | | | [facility] | | | | + + + + +---------+ + + + + | Result panel 68 | + + + + + + +---------+ + + | (unknown) | (no date) | (unknown) | [facility] | (no | (units | (unknown) | | | | | [facility] | value) | unknown) | | | | | [facility] | | | | + + + + +---------+ + + + + | Result panel 69 | + + + + + + +---------+ + + | (unknown) | (no date) | (unknown) | [facility] | (no | (units | (unknown) | | | | | [facility] | value) | unknown) | | [facility] | [facility] | | | | + + + + +---------+ + + + + | Result panel 70 | + + + + + + +---------+ + + | (unknown) | (no date) | (unknown) | [facility] | (no | (units | (unknown) | | | | | [facility] | value) | unknown) | | | | [facility] | | | | + + + + +---------+ + + + + | Result panel 71 | + + + + + + +---------+ + + | (unknown) | (no date) | (unknown) | [facility] | (no | (units | (unknown) | | | | | [facility] | value) | unknown) | [facility] | [facility] | | | | + + + + +---------+ + + + + | Result panel 72 | + + + + + + +---------+ + + | (unknown) | (no date) | (unknown) | [facility] | (no | (units | (unknown) | | | | | [facility] | value) | unknown) | | | | | [facility] | | | | + + + + +---------+ + + + + | Result panel 73 | + + + + + + +---------+ + + | (unknown) | (no date) | (unknown) | [facility] | (no | (units | (unknown) | | | | | [facility] | value) | unknown) | | | | [facility] | | | | + + + + +---------+ + + + + | Result panel 74 | + + + + + + +---------+ + + | (unknown) | (no date) | (unknown) | [facility] | (no | (units | (unknown) | | | | | [facility] | value) | unknown) | | | | | [facility] | | | | + + + + +---------+ + + + + | Result panel 75 | + + + + + + +---------+ + + | (unknown) | (no date) | (unknown) | [facility] | (no | (units | (unknown) | | | | | [facility] | value) | unknown) | [facility] | | | [facility] | | | | + + + + +---------+ + + + + | Result panel 76 | + + + + + + +---------+ + + | (unknown) | (no date) | (unknown) | [facility] | (no | (units | (unknown) | | | | | [facility] | value) | unknown) | | | | | | [facility] | | | | + + + + +---------+ + + Social History No information. Vital Signs + + + +---------+ | date | measurement | value | units | + + + +---------+ | 2022-10-15 00:00 | BMI | 45.5 | kg/m2 | + + + +---------+ | 2022-10-15 00:00 | BP_diastolic | 52 | mmHg | + + + +---------+ | 2022-10-15 00:00 | BP_systolic | 120 | mmHg | + + + +---------+ | 2022-10-15 00:00 | heart_rate | 93 | /min | + + + +---------+ | 2022-10-15 00:00 | height_metric | 152.4 | cm | + + + +---------+ | 2022-10-15 00:00 | height_standard | 60 | in | + + + +---------+ | 2022-10-15 00:00 | o2_saturation | 98 | % | + + + +---------+ | 2022-10-15 00:00 | respiration_rate | 18 | /min | + + + +---------+ | 2022-10-15 00:00 | temperature_metric | 36.78 | C | | | | | | + + + +---------+ | 2022-10-15 00:00 | | 98.2 | F | | | temperature_standar | | | | | d | | | + + + +---------+ | 2022-10-15 00:00 | weight_metric | 105.7 | kg | + + + +---------+ | 2022-10-15 00:00 | weight_standard | 233.03 | lb | + + + +---------+ | 2022-11-13 00:00 | BMI | 46.5 | kg/m2 | + + + +---------+ | 2022-11-13 00:00 | BP_diastolic | 92 | mmHg | + + + +---------+ | 2022-11-13 00:00 | BP_systolic | 126 | mmHg | + + + +---------+ | 2022-11-13 00:00 | heart_rate | 89 | /min | + + + +---------+ | 2022-11-13 00:00 | height_metric | 152.4 | cm | + + + +---------+ | 2022-11-13 00:00 | height_standard | 60 | in | + + + +---------+ | 2022-11-13 00:00 | o2_saturation | 95 | % | + + + +---------+ | 2022-11-13 00:00 | respiration_rate | 18 | /min | + + + +---------+ | 2022-11-13 00:00 | temperature_metric | 36.44 | C | | | | | | + + + +---------+ | 2022-11-13 00:00 | | 97.6 | F | | | temperature_standar | | | | | d | | | + + + +---------+ | 2022-11-13 00:00 | weight_metric | 107.95 | kg | + + + +---------+ | 2022-11-13 00:00 | weight_standard | 237.99 | lb | + + + +---------+ | 2022-11-13 00:00 | weight_standard | 238 | lb | + + + +---------+"
--- OUTSIDE RECORDS SUMMARY | ~2022-12-21 | XMS | Continuity of Care Document ---
Demographics + + + | Address | [address] | | | [place] [address] | + + + | Preferred Language | Unknown | + + + | Marital Status | Never | + + + | Catholic Affiliation | Unknown | + + + | Race | White | + + + | Ethnic Group | Not or | + + + Author + + + | Author | [facility] | + + + | Organization | [facility] | + + + | Address | [address] [facility] [facility] | | | [place] [address] | + + + | Phone | | + + + Care Team Providers + + + + | Care Pattern Grader Supervisor Name | Role | Phone | + + + + Unavailable | Unavailable | + + + + Unavailable | Unavailable | + + + + Allergies and Intolerances + + + + + | date | description | facility | type | + + + + + | (no date) | Urticaria | [facility] | (unknown) | | | | Hospital | | + + + + + | (no date) | Hydrocodone | [facility] | (unknown) | | | | Hospital | | + + + + + | (no date) | Mild | [facility] | (unknown) | | | | Hospital | | + + + + + | (no date) | Hydrocodone | [facility] | (unknown) | | | | Hospital | | + + + + + | (no date) | Hydrocodone | [facility] | (unknown) | | | | Hospital | | + + + + + | (no date) | Penicillin | [facility] | (unknown) | | | | Hospital | | + + + + + | (no date) | Penicillin | [facility] | (unknown) | | | | Hospital | | + + + + + | (no date) | Penicillin | [facility] | (unknown) | | | | Hospital | | + + + + + | (no date) | Penicillin | [facility] | (unknown) | | | | Hospital | | + + + + + Encounters No information. Functional Status No information. Immunizations + + + + | date | description | facility | + + + + | 2017-04-02 00:00 | Influenza, Seasonal, | [facility] | | | Injectable, Preservative | | | | Free | | + + + + Medications + + + + | date | description | facility | + + + + | 2022-10-15 00:00 | OXYCODONE HCL | [facility] | + + + + | 2022-11-13 00:00 | OXYCODONE HCL | [facility] | + + + + | 2017-04-02 00:00 | PSEUDOEPHEDRINE HCL | [facility] | + + + + | 2022-10-15 00:00 | PSEUDOEPHEDRINE HCL | [facility] | + + + + | 2022-11-13 00:00 | PSEUDOEPHEDRINE HCL | [facility] | + + + + | 2022-10-15 00:00 | PREDNISOLONE | [facility] | + + + + | 2022-11-13 00:00 | PREDNISOLONE | [facility] | + + + + | 2022-10-15 00:00 | BUDESONIDE/FORMOTEROL | [facility] | | | FUMARATE | | + + + + | 2022-11-13 00:00 | BUDESONIDE/FORMOTEROL | [facility] | | | FUMARATE | | + + + + | 2022-11-13 00:00 | Budesonide/Formoterol | [facility] | | | Fumarate | | + + + + | 2017-04-02 00:00 | FLUTICASONE PROPIONATE 50 | [facility] | | | MCG | | + + + + | 2022-10-15 00:00 | CITALOPRAM HYDROBROMIDE | [facility] | + + + + | 2022-11-13 00:00 | CITALOPRAM HYDROBROMIDE | [facility] | + + + + | 2017-04-02 00:00 | PREDNISONE | [facility] | + + + + | 2017-04-02 00:00 | CLINDAMYCIN HCL | [facility] | + + + + | 2017-04-02 00:00 | CEFPODOXIME PROXETIL | [facility] | + + + + | 2022-10-15 00:00 | CITALOPRAM HYDROBROMIDE | [facility] | + + + + | 2022-11-13 00:00 | CITALOPRAM HYDROBROMIDE | [facility] | + + + + | 2017-12-20 00:00 | predniSONE | [facility] | + + + + | 2017-03-31 00:00 | ALBUTEROL SULFATE | [facility] | + + + + | 2022-10-15 00:00 | CYCLOBENZAPRINE HCL | [facility] | + + + + | 2022-11-13 00:00 | CYCLOBENZAPRINE HCL | [facility] | + + + + | 2022-10-15 00:00 | HYDROCODONE/APAP | [facility] | | | (10-325MG) | | + + + + | 2022-11-13 00:00 | HYDROCODONE/APAP | [facility] | | | (10-325MG) | | + + + + | 2022-11-13 00:00 | ALBUTEROL SULFATE | [facility] | + + + + | 2022-10-15 00:00 | BUSPIRONE HCL | [facility] | + + + + | 2022-11-13 00:00 | BUSPIRONE HCL | [facility] | + + + + | 2022-10-15 00:00 | ONDANSETRON | [facility] | + + + + | 2022-11-13 00:00 | ONDANSETRON | [facility] | + + + + | 2017-04-02 00:00 | Nicotine Polacrilex | [facility] | + + + + Problems + + + + | date | description | facility | + + + + | 2015-11-21 00:00 | Migraine headache | [facility] | + + + + | 2017-02-10 00:00 | Encounter for medical | [facility] | | | screening examination | | + + + + | 2017-03-31 00:00 | Shortness of breath | [facility] | + + + + | 2017-03-31 00:00 | Wheezing on auscultation | [facility] | + + + + | 2017-04-01 00:00 | Exacerbation of asthma | [facility] | + + + + | 2017-04-02 00:00 | Asthma with status | [facility] | | | asthmaticus | | + + + + | 2017-08-10 00:00 | Upper respiratory | [facility] | | | infection with cough and | | | | congestion | | + + + + | 2017-08-10 00:00 | Acute asthma | [facility] | + + + + | 2017-09-14 00:00 | Postoperative pain | [facility] | + + + + | 2017-09-14 00:00 | Pain of nose | [facility] | + + + + | 2017-09-14 00:00 | Encounter for medication | [facility] | | | refill | | + + + + | 2018-01-01 00:00 | Nonspecific abdominal pain | [facility] | | | | | + + + + | 2018-02-05 00:00 | Right flank pain | [facility] | + + + + | 2022-10-15 00:00 | Chest wall pain | [facility] | + + + + | 2022-11-13 00:00 | Pain of right upper | [facility] | | | extremity | | + [...]
[~2022-12-21 11:28] MED LIST changes: +BUDESONIDE-FO10.2 G1 INH; +VENTOLIN HFA18 GM INH
[2022-12-21] MEDS ORDERED: VENTOLIN HFA18 GM INH (15:03)
[2022-12-21] MEDS ORDERED: BUDESONIDE-FO10.2 G1 INH (15:03)
[2022-12-21] MEDS ORDERED: SUDAFED 12-HOU120 MG PO (15:03)
[2022-12-21 15:16] VITALS: BP 148/60
== END 2022-12-21 15:17 | disposition home or self-care (01) ==
LOC: ED 11:28
DX: J06.9 Acute upper respiratory infection, unspecified (principal); B97.89 Other viral agents as the cause of diseases classified elsewhere; J45.909 Unspecified asthma, uncomplicated; Z87.891 Personal history of nicotine dependence; Z88.0 Allergy status to penicillin; Z88.5 Allergy status to narcotic agent; Z79.899 Other long term (current) drug therapy
CPT/HCPCS: 99283

== ENCOUNTER 2023-02-15 14:05 | Emergency (ER) | payer OTHER ==
[~2023-02-15] VITALS: Ht 152.4 cm; Wt 115.7 kg
--- OUTSIDE RECORDS SUMMARY | ~2023-02-15 | XMS | Continuity of Care Document ---
Demographics + + + | Address | [address] | | | [place] [address] | + + + | Preferred Language | Unknown | + + + | Marital Status | Never | + + + | Rastafarian Affiliation | Unknown | + + + | Race | White | + + + | Ethnic Group | Not or | + + + Author + + + | Author | [facility] | + + + | Organization | [facility] | + + + | Address | [address] | | | [place] [address] | + + + | Phone | | + + + Care Team Providers + + + + | Care Cloth Finishing Range Tender Name | Role | Phone | + + + + Unavailable | Unavailable | + + + + Unavailable | Unavailable | + + + + Unavailable | Unavailable | + + + + Allergies and Intolerances + + + + + + | date | description | facility | reaction | severity | + + + + + + | (no date) | Urticaria | [facility] | (no reaction) | (no severity) | [facility] | | | + + + + + + | (no date) | Hydrocodone | [facility] | (no reaction) | (no severity) | [facility] | | | + + + + + + | (no date) | Mild | [facility] | (no reaction) | (no severity) | [facility] | | | + + + + + + | (no date) | Hydrocodone | [facility] | (no reaction) | (no severity) | | [facility] | | | + + + + + + | (no date) | Hydrocodone | [facility] | (no reaction) | (no severity) | | [facility] | | | + + + + + + | (no date) | Penicillin | [facility] | (no reaction) | (no severity) | | [facility] | | | + + + + + + | (no date) | Penicillin | [facility] | (no reaction) | (no severity) | | [facility] | | | + + + + + + | (no date) | Penicillins | [facility] | (no reaction) | (no severity) | + + + + + + | (no date) | hydrocodone | [facility] | (no reaction) | (no severity) | + + + + + + | (no date) | Penicillin | [facility] | (no reaction) | (no severity) | | [facility] | | | + + + + + + | (no date) | Penicillin | [facility] | (no reaction) | (no severity) | | [facility] | | | + + + + + + Encounters No information. Functional Status No information. Immunizations + + + + | date | description | facility | + + + + | 2017-04-02 00:00 | Influenza, Seasonal, | [facility] | | | Injectable, Preservative | | | | Free | | + + + + | 2017-04-02 00:00 | Influenza, Seasonal, | [facility] | | | Injectable, Preservative | | | | Free | | + + + + Medications + + + + | date | description | facility | + + + + | 2022-12-21 00:00 | PSEUDOEPHEDRINE HCL | [facility] | + + + + | 2022-10-15 00:00 | OXYCODONE HCL | [facility] | + + + + | 2022-11-13 00:00 | OXYCODONE HCL | [facility] | + + + + | 2022-12-21 00:00 | OXYCODONE HCL | [facility] | + + + + | 2017-04-02 00:00 | PSEUDOEPHEDRINE HCL | [facility] | + + + + | 2017-04-02 00:00 | PSEUDOEPHEDRINE HCL | [facility] | + + + + | 2022-10-15 00:00 | PSEUDOEPHEDRINE HCL | [facility] | + + + + | 2022-11-13 00:00 | PSEUDOEPHEDRINE HCL | [facility] | + + + + | 2022-12-21 00:00 | PSEUDOEPHEDRINE HCL | [facility] | + + + + | 2022-10-15 00:00 | PREDNISOLONE | [facility] | + + + + | 2022-11-13 00:00 | PREDNISOLONE | [facility] | + + + + | 2022-12-21 00:00 | PREDNISOLONE | [facility] | + + + + | 2022-10-15 00:00 | BUDESONIDE/FORMOTEROL | [facility] | | | FUMARATE | | + + + + | 2022-11-13 00:00 | BUDESONIDE/FORMOTEROL | [facility] | | | FUMARATE | | + + + + | 2022-12-21 00:00 | BUDESONIDE/FORMOTEROL | [facility] | | | FUMARATE | | + + + + | 2022-11-13 00:00 | Budesonide/Formoterol | [facility] | | | Fumarate | | + + + + | 2022-12-21 00:00 | Budesonide/Formoterol | [facility] | | | Fumarate | | + + + + | 2017-04-02 00:00 | FLUTICASONE PROPIONATE 50 | [facility] | | | MCG | | + + + + | 2017-04-02 00:00 | FLUTICASONE PROPIONATE 50 | [facility] | | | MCG | | + + + + | 2022-10-15 00:00 | CITALOPRAM HYDROBROMIDE | [facility] | + + + + | 2022-11-13 00:00 | CITALOPRAM HYDROBROMIDE | [facility] | + + + + | 2022-12-21 00:00 | CITALOPRAM HYDROBROMIDE | [facility] | + + + + | 2017-04-02 00:00 | PREDNISONE | [facility] | + + + + | 2017-04-02 00:00 | PREDNISONE | [facility] | + + + + | 2017-04-02 00:00 | CLINDAMYCIN HCL | [facility] | + + + + | 2017-04-02 00:00 | CLINDAMYCIN HCL | [facility] | + + + + | 2017-04-02 00:00 | CEFPODOXIME PROXETIL | [facility] | + + + + | 2017-04-02 00:00 | CEFPODOXIME PROXETIL | [facility] | + + + + | 2022-10-15 00:00 | CITALOPRAM HYDROBROMIDE | [facility] | + + + + | 2022-11-13 00:00 | CITALOPRAM HYDROBROMIDE | [facility] | + + + + | 2022-12-21 00:00 | CITALOPRAM HYDROBROMIDE | [facility] | + + + + | 2017-12-20 00:00 | predniSONE | [facility] | + + + + | 2017-12-20 00:00 | predniSONE | [facility] | + + + + | 2017-03-31 00:00 | ALBUTEROL SULFATE | [facility] | + + + + | 2017-03-31 00:00 | ALBUTEROL SULFATE | [facility] | + + + + | 2022-10-15 00:00 | CYCLOBENZAPRINE HCL | [facility] | + + + + | 2022-11-13 00:00 | CYCLOBENZAPRINE HCL | [facility] | + + + + | 2022-12-21 00:00 | CYCLOBENZAPRINE HCL | [facility] | + + + + | 2022-10-15 00:00 | HYDROCODONE/APAP | [facility] | | | (10-325MG) | | + + + + | 2022-11-13 00:00 | HYDROCODONE/APAP | [facility] | | | (10-325MG) | | + + + + | 2022-12-21 00:00 | HYDROCODONE/APAP | [facility] | | | (10-325MG) | | + + + + | 2022-11-13 00:00 | ALBUTEROL SULFATE | [facility] | + + + + | 2022-12-21 00:00 | ALBUTEROL SULFATE | [facility] | + + + + | 2022-10-15 00:00 | BUSPIRONE HCL | [facility] | + + + + | 2022-11-13 00:00 | BUSPIRONE HCL | [facility] | + + + + | 2022-12-21 00:00 | BUSPIRONE HCL | [facility] | + + + + | 2022-10-15 00:00 | ONDANSETRON | [facility] | + + + + | 2022-11-13 00:00 | ONDANSETRON | [facility] | + + + + | 2022-12-21 00:00 | ONDANSETRON | [facility] | + + + + | 2017-04-02 00:00 | Nicotine Polacrilex | [facility] | + + + + | 2017-04-02 00:00 | Nicotine Polacrilex | [facility] | + + + + Problems + + + + | date | description | facility | + + + + | 2015-11-21 00:00 | Migraine headache | [facility] | + + + + | 2015-11-21 00:00 | Migraine headache | [facility] | + + + + | 2017-02-10 00:00 | Encounter for medical | [facility] | | | screening examination | | + + + + | 2017-02-10 00:00 | Encounter for medical | [facility] | | | screening examination | | + + + + | 2017-03-31 00:00 | Shortness of breath | [facility] | + + + + | 2017-03-31 00:00 | Shortness of breath | [facility] | + + + + | 2017-03-31 00:00 | Wheezing on auscultation | [facility] | + + + + | 2017-03-31 00:00 | Wheezing on auscultation | [facility] | + + + + | 2017-04-01 00:00 | Exacerbation of asthma | [facility] | + + + + | 2017-04-01 00:00 | Exacerbation of asthma | [facility] | + + + + | 2017-04-02 00:00 | Asthma with status | [facility] | | | asthmaticus | | + + + + | 2017-04-02 00:00 | Asthma with status | [facility] | | | asthmaticus | | + + + + | 2017-08-10 00:00 | Upper respiratory | [facility] | | | infection with cough and | | | | congestion | | + + + + | 2017-08-10 00:00 | Upper respiratory | [facility] | | | infection with cough and | | | | congestion | | + + + + | 2017-08-10 00:00 | Acute asthma | [facility] | + + + + | 2017-08-10 00:00 | Acute asthma | [facility] | + + + + | 2017-09-14 00:00 | Postoperative pain | [facility] | + + + + | 2017-09-14 00:00 | Postoperative pain | [facility] | + + + + | 2017-09-14 00:00 | Pain of nose | [facility] | + + + + | 2017-09-14 00:00 | Pain of nose | [facility] | + + + + | 2017-09-14 00:00 | Encounter for medication | [facility] | | | refill | | + + + + | 2017-09-14 00:00 | Encounter for medication | [facility] | | | refill | | + + + + | 2018-01-01 00:00 | Nonspecific abdominal pain | [facility] | | | | | + + + + | 2018-01-01 00:00 | Nonspecific abdominal pain | [facility] | | | | | + + + + | 2018-02-05 00:00 | Right flank pain | [facility] | + + + + | 2018-02-05 00:00 | Right flank pain | [facility] | + + + + | 2022-10-15 00:00 | Chest wall pain | [facility] | + + + + | 2022-10-15 00:00 | Chest wall pain | [facility] | + + + + | 2022-10-15 16:33 | MIGRAINE, UNSP, NOT | [facility] | | | INTRACTABLE, WITHOUT STATUS | | | | [place] | | + + + + | 2022-10-15 16:33 | UNSPECIFIED ASTHMA, | [facility] | | | UNCOMPLICATED | | + + + + | 2022-10-15 16:33 | OTHER CHEST PAIN | [facility] | + + + + | 2022-10-15 16:33 | PERSONAL HISTORY OF | [facility] | | | NICOTINE DEPENDENCE | | + + + + | 2022-10-15 16:33 | ALLERGY STATUS TO | [facility] | | | PENICILLIN | | + + + + | 2022-10-15 16:33 | ALLERGY STATUS TO NARCOTIC | [facility] | | | AGENT STATUS | | + + + + | 2022-11-13 00:00 | Pain of right upper | [facility] | | | extremity | | + + + + | 2022-11-13 00:00 | Pain of right upper | [facility] | | | extremity | | + + + + | 2022-11-13 11:38 | UNSPECIFIED ASTHMA, | [facility] | | | UNCOMPLICATED | | + + + + | 2022-11-13 11:38 | PAIN IN RIGHT SHOULDER | [facility] | + + + + | 2022-11-13 11:38 | PAIN IN RIGHT ARM | [facility] | + + + + | 2022-11-13 11:38 | CHEST PAIN, UNSPECIFIED | [facility] | + + + + | 2022-11-13 11:38 | OTHER HALFWAY (CURRENT) | [facility] | | | DRUG THERAPY | | + + + + | 2022-11-13 11:38 | PERSONAL HISTORY OF | [facility] | | | NICOTINE DEPENDENCE | | + + + + | 2022-11-13 11:38 | ALLERGY STATUS TO | [facility] | | | PENICILLIN | | + + + + | 2022-11-13 11:38 | ALLERGY STATUS TO NARCOTIC | [facility] | | | AGENT STATUS | | + + + + | 2022-12-21 00:00 | Viral upper respiratory | [facility] | | | tract infection | | + + + + | 2022-12-21 11:29 | OTH VIRAL AGENTS THE | [facility] | | | CAUSE OF DISEASES CLASSD E | | + + + + | 2022-12-21 11:29 | ACUTE UPPER RESPIRATORY | [facility] | | | INFECTION, UNSPECIFIED | | + + + + | 2022-12-21 11:29 | UNSPECIFIED ASTHMA, | [facility] | | | UNCOMPLICATED | | + + + + | 2022-12-21 11:29 | COUGH, UNSPECIFIED | [facility] | + + + + | 2022-12-21 11:29 | OTHER HALFWAY (CURRENT) | [facility] | | | DRUG THERAPY | | + + + + | 2022-12-21 11:29 | PERSONAL HISTORY OF | [facility] | | | NICOTINE DEPENDENCE | | + + + + | 2022-12-21 11:29 | ALLERGY STATUS TO | [facility] | | | PENICILLIN | | + + + + | 2022-12-21 11:29 | ALLERGY STATUS TO NARCOTIC | [facility] | | | AGENT STATUS | | + + + + Procedures No information. Results/Labs +--------+--------+ +---------+--------+---------+ | test | date | facility | value | unit | notes | +--------+--------+ +---------+--------+---------+ + + | Result panel 1 | + + + + + +--------+ + + | | 2022-10-15 | [facility] | 13.0 | (missing) | (missing) | | (unavailable | [facility] | | | | + + + +--------+ + + + + | Result panel 2 | + + + + + +--------+ + + | | 2022-10-15 | [facility] | 1.03 | (missing) | (missing) | | (unavailable | [facility] | | | | + + + +--------+ + + + + | Result panel 3 | + + + + + + + + + | | 2022-10-15 | [facility] | < 0.27 | (missing) | (missing) | | (unavailable | [facility] | | | | + + + + + + + + + | Result panel 4 | + + + + + +-------+---------+ + | | 2022-10-15 | [facility] | 111 | mg/dL | (missing) | | (unavailable | [facility] | | | | + + + +-------+---------+ + + + | Result panel 5 | + + + + + +------+---------+ + | | 2022-10-15 | [facility] | 18 | mg/dL | (missing) | | (unavailable | [facility] | | | | + + + +------+---------+ + + + | Result panel 6 | + + + + + +--------+---------+ + | | 2022-10-15 | [facility] | 0.98 | mg/dL | (missing) | | (unavailable | [facility] | | | | + + + +--------+---------+ + + + | Result panel 7 | + + + + + +------+ + + | | 2022-10-15 | [facility] | 79 | (missing) | (missing) | | (unavailable | [facility] | | | | + + + +------+ + + + + | Result panel 8 | + + + + + +---------+ + + | | 2022-10-15 | [facility] | 18.36 | (missing) | (missing) | | (unavailable | [facility] | | | | + + + +---------+ + + + + | Result panel 9 | + + + + + +-------+ + + | | 2022-10-15 | [facility] | 148 | (missing) | (missing) | | (unavailable | [facility] | | | | + + + +-------+ + + + + | Result panel 10 | + + + + + +-------+ + + | | 2022-10-15 | [facility] | 3.5 | (missing) | (missing) | | (unavailable | [facility] | | | | + + + +-------+ + + + + | Result panel 11 | + + + + + +-------+ + + | | 2022-10-15 | [facility] | 111 | (missing) | (missing) | | (unavailable | [facility] | | | | + + + +-------+ + + + + | Result panel 12 | + + + + + +------+ + + | | 2022-10-15 | [facility] | 29 | (missing) | (missing) | | (unavailable | [facility] | | | | + + + +------+ + + + + | Result panel 13 | + + + + + +--------+ + + | | 2022-10-15 | [facility] | 11.5 | (missing) | (missing) | | (unavailable | [facility] | | | + + + +--------+ + + + + | Result panel 14 | + + + + + +-------+---------+ + | | 2022-10-15 | [facility] | 9.1 | mg/dL | (missing) | | (unavailable | [facility] | | | | + + + +-------+---------+ + + + | Result panel 15 | + + + + + +-------+---------+ + | | 2022-10-15 | [facility] | 2.1 | mg/dL | (missing) | | (unavailable | [facility] | | | | + + + +-------+---------+ + + + | Result panel 16 | + + + + + +-------+ + + | | 2022-10-15 | [facility] | 6.8 | (missing) | (missing) | | (unavailable | [facility] | | | + + + +-------+ + + + + | Result panel 17 | + + + + + +-------+ + + | | 2022-10-15 | [facility] | 3.6 | (missing) | (missing) | | (unavailable | [facility] | | | | + + + +-------+ + + + + | Result panel 18 | + + + + + +-------+ + + | | 2022-10-15 | [facility] | 3.2 | (missing) | (missing) | | (unavailable | [facility] | | | + + + +-------+ + + + + | Result panel 19 | + + + + + +--------+ + + | | 2022-10-15 | [facility] | 1.13 | (missing) | (missing) | | (unavailable | [facility] | | | + + + +--------+ + + + + | Result panel 20 | + + + + + +-------+ + + | | 2022-10-15 | [facility] | 0.5 | (missing) | (missing) | | (unavailable | [facility] | | | + + + +-------+ + + + + | Result panel 21 | + + + + + +------+ + + | | 2022-10-15 | [facility] | 15 | (missing) | (missing) | | (unavailable | [facility] | | | | + + + +------+ + + + + | Result panel 22 | + + + + + +------+ + + | | 2022-10-15 | [facility] | 17 | (missing) | (missing) | | (unavailable | [facility] | | | | + + + +------+ + + + + | Result panel 23 | + + + + + +------+ + + | | 2022-10-15 | [facility] | 46 | (missing) | (missing) | | (unavailable | [facility] | | | + + + +------+ + + + + | Result panel 24 | + + + + + +-------+ + + | | 2022-10-15 | [facility] | 8.5 | (missing) | (missing) | | (unavailable | [facility] | | | + + + +-------+ + + + + | Result panel 25 | + + + + + +--------+ + + | | 2022-10-15 | [facility] | 4.72 | (missing) | (missing) | | (unavailable | [facility] | | | + + + +--------+ + + + + | Result panel 26 | + + + + + +--------+ + + | | 2022-10-15 | [facility] | 13.3 | (missing) | (missing) | | (unavailable | [facility] | | | + + + +--------+ + + + + | Result panel 27 | + + + + + +--------+ + + | | 2022-10-15 | [facility] | 41.2 | (missing) | (missing) | | (unavailable | [facility] | | | + + + +--------+ + + + + | Result panel 28 | + + + + + +--------+ + + | | 2022-10-15 | [facility] | 87.3 | (missing) | (missing) | | (unavailable | [facility] | | | + + + +--------+ + + + + | Result panel 29 | + + + + + +--------+ + + | | 2022-10-15 | [facility] | 28.2 | (missing) | (missing) | | (unavailable | [facility] | | | + + + +--------+ + + + + | Result panel 30 | + + + + + +--------+ + + | | 2022-10-15 | [facility] | 32.3 | (missing) | (missing) | | (unavailable | [facility] | | | + + + +--------+ + + + + | Result panel 31 | + + + + + +--------+ + + | | 2022-10-15 | [facility] | 14.1 | (missing) | (missing) | | (unavailable | [facility] | | | + + + +--------+ + + + + | Result panel 32 | + + + + + +-------+ + + | | 2022-10-15 | [facility] | 343 | (missing) | (missing) | | (unavailable | [facility] | | | + + + +-------+ + + + + | Result panel 33 | + + + + + +--------+ + + | | 2022-10-15 | [facility] | 61.3 | (missing) | (missing) | | (unavailable | [facility] | | | + + + +--------+ + + + + | Result panel 34 | + + + + + +--------+ + + | | 2022-10-15 | [facility] | 29.6 | (missing) | (missing) | | (unavailable | [facility] | | | + + + +--------+ + + + + | Result panel 35 | + + + + + +-------+ + + | | 2022-10-15 | [facility] | 5.5 | (missing) | (missing) | | (unavailable | [facility] | | | | + + + +-------+ + + + + | Result panel 36 | + + + + + +-------+ + + | | 2022-10-15 | [facility] | 3.2 | (missing) | (missing) | | (unavailable | [facility] | | | | + + + +-------+ + + + + | Result panel 37 | + + + + + +-------+ + + | | 2022-10-15 | [facility] | 0.4 | (missing) | (missing) | | (unavailable | [facility] | | | | + + + +-------+ + + + + | Result panel 38 | + + + + + +--------+ + + | | 2022-10-15 | [facility] | 13.0 | (missing) | (missing) | | (unavailable | [facility] | | | + + + +--------+ + + + + | Result panel 39 | + + + + + +--------+ + + | | 2022-10-15 | [facility] | 1.03 | (missing) | (missing) | | (unavailable | [facility] | | | | + + + +--------+ + + + + | Result panel 40 | + + + + + + + + + | | 2022-10-15 | [facility] | < 0.27 | (missing) | (missing) | | (unavailable | [facility] | | | | + + + + + + + + + | Result panel 41 | + + + + + +-------+---------+ + | | 2022-10-15 | [facility] | 111 | mg/dL | (missing) | | (unavailable | : [facility] | | | | + + + +-------+---------+ + + + | Result panel 42 | + + + + + +------+---------+ + | | 2022-10-15 | [facility] | 18 | mg/dL | (missing) | | (unavailable | [facility] | | | | + + + +------+---------+ + + + | Result panel 43 | + + + + + +--------+---------+ + | | 2022-10-15 | [facility] | 0.98 | mg/dL | (missing) | | (unavailable | [facility] | | | | + + + +--------+---------+ + + + | Result panel 44 | + + + + + +------+ + + | | 2022-10-15 | [facility] | 79 | (missing) | (missing) | | (unavailable | [facility] | | | | + + + +------+ + + + + | Result panel 45 | + + + + + +---------+ + + | | 2022-10-15 | [facility] | 18.36 | (missing) | (missing) | | (unavailable | [facility] | | | | + + + +---------+ + + + + | Result panel 46 | + + + + + +-------+ + + | | 2022-10-15 | [facility] | 148 | (missing) | (missing) | | (unavailable | [facility] | | | | + + + +-------+ + + + + | Result panel 47 | + + + + + +-------+ + + | | 2022-10-15 | [facility] | 3.5 | (missing) | (missing) | | (unavailable | [facility] | | | | + + + +-------+ + + + + | Result panel 48 | + + + + + +-------+ + + | | 2022-10-15 | [facility] | 111 | (missing) | (missing) | | (unavailable | [facility] | | | | + + + +-------+ + + + + | Result panel 49 | + + + + + +------+ + + | | 2022-10-15 | [facility] | 29 | (missing) | (missing) | | (unavailable | [facility] | | | | + + + +------+ + + + + | Result panel 50 | + + + + + +--------+ + + | | 2022-10-15 | [facility] | 11.5 | (missing) | (missing) | | (unavailable | [facility] | | | | + + + +--------+ + + + + | Result panel 51 | + + + + + +-------+---------+ + | | 2022-10-15 | [facility] | 9.1 | mg/dL | (missing) | | (unavailable | 17:19:07 | [facility] | | | | + + + +-------+---------+ + + + | Result panel 52 | + + + + + +-------+---------+ + | | 2022-10-15 | [facility] | 2.1 | mg/dL | (missing) | | (unavailable | 17:19:07 | [facility] | | | | + + + +-------+---------+ + + + | Result panel 53 | + + + + + +-------+ + + | | 2022-10-15 | [facility] | 6.8 | (missing) | (missing) | | (unavailable | 17:19:07 | [facility] | | | | + + + +-------+ + + + + | Result panel 54 | + + + + + +-------+ + + | | 2022-10-15 | [facility] | 3.6 | (missing) | (missing) | | (unavailable | 17:19:07 [facility] | | | | + + + +-------+ + + + + | Result panel 55 | + + + + + +-------+ + + | | 2022-10-15 | [facility] | 3.2 | (missing) | (missing) | | (unavailable | 17:19:07 [facility] | | | | + + + +-------+ + + + + | Result panel 56 | + + + + + +--------+ + + | | 2022-10-15 | [facility] | 1.13 | (missing) | (missing) | | (unavailable | 17:19:07 [facility] | | | | + + + +--------+ + + + + | Result panel 57 | + + + + + +-------+ + + | | 2022-10-15 | [facility] | 0.5 | (missing) | (missing) | | (unavailable | 17:19:07 [facility] | | | | + + + +-------+ + + + + | Result panel 58 | + + + + + +------+ + + | | 2022-10-15 | [facility] | 15 | (missing) | (missing) | | (unavailable | 17:19:07 | [facility] | | | | + + + +------+ + + + + | Result panel 59 | + + + + + +------+ + + | | 2022-10-15 | [facility] | 17 | (missing) | (missing) | | (unavailable | 17:19:07 [facility] | | | | + + + +------+ + + + + | Result panel 60 | + + + + + +------+ + + | | 2022-10-15 | [facility] | 46 | (missing) | (missing) | | (unavailable | 17:19:07 [facility] | | | | + + + +------+ + + + + | Result panel 61 | + + + + + +--------+ + + | | 2022-10-15 | [facility] | <4.0 | (missing) | (missing) | | (unavailable | 17:19:07 [facility] | | | | + + + +--------+ + + + + | Result panel 62 | + + + + + +-------+ + + | | 2022-11-13 | [facility] | 6.4 | (missing) | (missing) | | (unavailable | 12:41:07 [facility] | | | | + + + +-------+ + + + + | Result panel 63 | + + + + + +--------+ + + | | 2022-11-13 | [facility] | 49.6 | (missing) | (missing) | | (unavailable | 12:41:07 [facility] | | | | + + + +--------+ + + + + | Result panel 64 | + + + + + +--------+ + + | | 2022-11-13 | [facility] | 39.7 | (missing) | (missing) | | (unavailable | 12:41:07 [facility] | | | | + + + +--------+ + + + + | Result panel 65 | + + + + + +-------+ + + | | 2022-11-13 | [facility] | 6.1 | (missing) | (missing) | | (unavailable | 12:41:07 [facility] | | | | + + + +-------+ + + + + | Result panel 66 | + + + + + +-------+ + + | | 2022-11-13 | [facility] | 3.9 | (missing) | (missing) | | (unavailable | 12:41:07 [facility] | | | | + + + +-------+ + + + + | Result panel 67 | + + + + + +-------+ + + | | 2022-11-13 | [facility] | 0.7 | (missing) | (missing) | | (unavailable | 12:41:07 [facility] | | | | + + + +-------+ + + + + | Result panel 68 | + + + + + +--------+ + + | | 2022-11-13 | [facility] | <4.0 | (missing) | (missing) | | (unavailable | 12:41:07 [facility] | | | | + + + +--------+ + + + + | Result panel 69 | + + + + + +--------+ + + | | 2022-11-13 | [facility] | 4.65 | (missing) | (missing) | | (unavailable | 12:41:07 [facility] | | | | + + + +--------+ + + + + | Result panel 70 | + + + + + +--------+ + + | | 2022-11-13 | [facility] | 13.0 | (missing) | (missing) | | (unavailable | 12:41:07 [facility] | | | | + + + +--------+ + + + + | Result panel 71 | + + + + + +--------+ + + | | 2022-11-13 | [facility] | 40.5 | (missing) | (missing) | | (unavailable | 12:41:07 [facility] | | | | + + + +--------+ + + + + | Result panel 72 | + + + + + +--------+ + + | | 2022-11-13 | [facility] | 87.1 | (missing) | (missing) | | (unavailable | 12:41:07 [facility] | | | | + + + +--------+ + + + + | Result panel 73 | + + + + + +--------+ + + | | 2022-11-13 | [facility] | 28.0 | (missing) | (missing) | | (unavailable | 12:41:07 [facility] | | | | + + + +--------+ + + + + | Result panel 74 | + + + + + +--------+ + + | | 2022-11-13 | [facility] | 32.2 | (missing) | (missing) | | (unavailable | 12:41:07 [facility] | | | | + + + +--------+ + + + + | Result panel 75 | + + + + + +--------+ + + | | 2022-11-13 | [facility] | 14.3 | (missing) | (missing) | | (unavailable | 12:41:07 [facility] | | | | + + + +--------+ + + + + | Result panel 76 | + + + + + +-------+ + + | | 2022-11-13 | [facility] | 320 | (missing) | (missing) | | (unavailable | 12:41:07 [facility] | | | | + + + +-------+ + + Social History No information. Vital [...] 238 | lb | + + + +---------+ | 2022-12-21 00:00 | BMI | 48.4 | kg/m2 | + + + +---------+ | 2022-12-21 00:00 | BP_diastolic | 60 | mmHg | + + + +---------+ | 2022-12-21 00:00 | BP_systolic | 148 | mmHg | + + + +---------+ | 2022-12-21 00:00 | heart_rate | 79 | /min | + + + +---------+ | 2022-12-21 00:00 | height_metric | 152.4 | cm | + + + +---------+ | 2022-12-21 00:00 | height_standard | 60 | in | + + + +---------+ | 2022-12-21 00:00 | o2_saturation | 98 | % | + + + +---------+ | 2022-12-21 00:00 | respiration_rate | 18 | /min | + + + +---------+ | 2022-12-21 00:00 | temperature_metric | 37.06 | C | | | | | | + + + +---------+ | 2022-12-21 00:00 | | 98.7 | F | | | temperature_standar | | | | | d | | | + + + +---------+ | 2022-12-21 00:00 | weight_metric | 112.3 | kg | + + + +---------+ | 2022-12-21 00:00 | weight_standard | 247.58 | lb | + + + +---------+"
--- OUTSIDE RECORDS SUMMARY | ~2023-02-15 | XMS | Continuity of Care Document ---
Demographics + + + | Address | [address] | | | [place] [address] | + + + | Preferred Language | Unknown | + + + | Marital Status | Never | + + + | Mu-Ism Affiliation | Unknown | + + + | Race | White | + + + | Ethnic Group | Not or | + + + Author + + + | Author | [facility] | + + + | Organization | [facility] | + + + | Address | [address] | | | [place] [address] | + + + | Phone | | + + + Care Team Providers + + + + | Care Bath Solution Maker Name | Role | Phone | + [...] | 2017-04-02 00:00 | Influenza, Seasonal, | [facility] | | | Injectable, Preservative | | | | Free | | + + + + | 2017-04-02 00:00 | Influenza, Seasonal, | [facility] | | | Injectable, Preservative | | | | Free | | + + + + Medications + + + + | date | description | facility | + + + + | 2022-12-21 00:00 | PSEUDOEPHEDRINE HCL | [facility] | + + + + | 2022-10-15 00:00 | OXYCODONE HCL | [facility] | + + + + | 2022-11-13 00:00 | OXYCODONE HCL | [facility] | + + + + | 2022-12-21 00:00 | OXYCODONE HCL | [facility] | + + + + | 2017-04-02 00:00 | PSEUDOEPHEDRINE HCL | [facility] | + + + + | 2017-04-02 00:00 | PSEUDOEPHEDRINE HCL | [facility] | + + + + | 2022-10-15 00:00 | PSEUDOEPHEDRINE HCL | [facility] | + + + + | 2022-11-13 00:00 | PSEUDOEPHEDRINE HCL | [facility] | + + + + | 2022-12-21 00:00 | PSEUDOEPHEDRINE HCL | [facility] | + + + + | 2022-10-15 00:00 | PREDNISOLONE | [facility] | + + + + | 2022-11-13 00:00 | PREDNISOLONE | [facility] | + + + + | 2022-12-21 00:00 | PREDNISOLONE | [facility] | + + + + | 2022-10-15 00:00 | BUDESONIDE/FORMOTEROL | [facility] | | | FUMARATE | | + + + + | 2022-11-13 00:00 | BUDESONIDE/FORMOTEROL | [facility] | | | FUMARATE | | + + + + | 2022-12-21 00:00 | BUDESONIDE/FORMOTEROL | [facility] | | | FUMARATE | | + + + + | 2022-11-13 00:00 | Budesonide/Formoterol | [facility] | | | Fumarate | | + + + + | 2022-12-21 00:00 | Budesonide/Formoterol | [facility] | | | Fumarate | | + + + + | 2017-04-02 00:00 | FLUTICASONE PROPIONATE 50 | [facility] | | | MCG | | + + + + | 2017-04-02 00:00 | FLUTICASONE PROPIONATE 50 | [facility] | | | MCG | | + + + + | 2022-10-15 00:00 | CITALOPRAM HYDROBROMIDE | [facility] | + + + + | 2022-11-13 00:00 | CITALOPRAM HYDROBROMIDE | [facility] | + + + + | 2022-12-21 00:00 | CITALOPRAM HYDROBROMIDE | [facility] | + + + + | 2017-04-02 00:00 | PREDNISONE | [facility] | + + + + | 2017-04-02 00:00 | PREDNISONE | [facility] | + + + + | 2017-04-02 00:00 | CLINDAMYCIN HCL | [facility] | + + + + | 2017-04-02 00:00 | CLINDAMYCIN HCL | [facility] | + + + + | 2017-04-02 00:00 | CEFPODOXIME PROXETIL | [facility] | + + + + | 2017-04-02 00:00 | CEFPODOXIME PROXETIL | [facility] | + + + + | 2022-10-15 00:00 | CITALOPRAM HYDROBROMIDE | [facility] | + + + + | 2022-11-13 00:00 | CITALOPRAM HYDROBROMIDE | [facility] | + + + + | 2022-12-21 00:00 | CITALOPRAM HYDROBROMIDE | [facility] | + + + + | 2017-12-20 00:00 | predniSONE | [facility] | + + + + | 2017-12-20 00:00 | predniSONE | [facility] | + + + + | 2017-03-31 00:00 | ALBUTEROL SULFATE | [facility] | + + + + | 2017-03-31 00:00 | ALBUTEROL SULFATE | [facility] | + + + + | 2022-10-15 00:00 | CYCLOBENZAPRINE HCL | [facility] | + + + + | 2022-11-13 00:00 | CYCLOBENZAPRINE HCL | [facility] | + + + + | 2022-12-21 00:00 | CYCLOBENZAPRINE HCL | [facility] | + + + + | 2022-10-15 00:00 | HYDROCODONE/APAP | [facility] | | | (10-325MG) | | + + + + | 2022-11-13 00:00 | HYDROCODONE/APAP | [facility] | | | (10-325MG) | | + + + + | 2022-12-21 00:00 | HYDROCODONE/APAP | [facility] | | | (10-325MG) | | + + + + | 2022-11-13 00:00 | ALBUTEROL SULFATE | [facility] | + + + + | 2022-12-21 00:00 | ALBUTEROL SULFATE | [facility] | + + + + | 2022-10-15 00:00 | BUSPIRONE HCL | [facility] | + + + + | 2022-11-13 00:00 | BUSPIRONE HCL | [facility] | + + + + | 2022-12-21 00:00 | BUSPIRONE HCL | [facility] | + + + + | 2022-10-15 00:00 | ONDANSETRON | [facility] | + + + + | 2022-11-13 00:00 | ONDANSETRON | [facility] | + + + + | 2022-12-21 00:00 | ONDANSETRON | [facility] | + + + + | 2017-04-02 00:00 | Nicotine Polacrilex | [facility] | + + + + | 2017-04-02 00:00 | Nicotine Polacrilex | [facility] | + + + + Problems + + + + | date | description | facility | + + + + | 2015-11-21 00:00 | Migraine headache | [facility] | + + + + | 2015-11-21 00:00 | Migraine headache | [facility] | + + + + | 2017-02-10 00:00 | Encounter for medical | [facility] | | | screening examination | | + + + + | 2017-02-10 00:00 | Encounter for medical | [facility] | | | screening examination | | + + + + | 2017-03-31 00:00 | Shortness of breath | [facility] | + + + + | 2017-03-31 00:00 | Shortness of breath | [facility] | + + + + | 2017-03-31 00:00 | Wheezing on auscultation | [facility] | + + + + | 2017-03-31 00:00 | Wheezing on auscultation | [facility] | + + + + | 2017-04-01 00:00 | Exacerbation of asthma | [facility] | + + + + | 2017-04-01 00:00 | Exacerbation of asthma | [facility] | + + + + | 2017-04-02 00:00 | Asthma with status | [facility] | | | asthmaticus | | + + + + | 2017-04-02 00:00 | Asthma with status | [facility] | | | asthmaticus | | + + + + | 2017-08-10 00:00 | Upper respiratory | [facility] | | | infection with cough and | | | | congestion | | + + + + | 2017-08-10 00:00 | Upper respiratory | [facility] | | | infection with cough and | | | | congestion | | + + + + | 2017-08-10 00:00 | Acute asthma | [facility] | + + + + | 2017-08-10 00:00 | Acute asthma | [facility] | + + + + | 2017-09-14 00:00 | Postoperative pain | [facility] | + + + + | 2017-09-14 00:00 | Postoperative pain | [facility] | + + + + | 2017-09-14 00:00 | Pain of nose | [facility] | + + + + | 2017-09-14 00:00 | Pain of nose | [facility] | + + + + | 2017-09-14 00:00 | Encounter for medication | [facility] | | | refill | | + + + + | 2017-09-14 00:00 | Encounter for medication | [facility] | | | refill | | + + + + | 2018-01-01 00:00 | Nonspecific abdominal pain | [facility] | | | | | + + + + | 2018-01-01 00:00 | Nonspecific abdominal pain | [facility] | | | | | + + + + | 2018-02-05 00:00 | Right flank pain | [facility] | + + + + | 2018-02-05 00:00 | Right flank pain | [facility] | + + + + | 2022-10-15 00:00 | Chest wall pain | [facility] | + + + + | 2022-10-15 00:00 | Chest wall pain | [facility] | + + + + | 2022-10-15 16:33 | MIGRAINE, UNSP, NOT | [facility] | | | INTRACTABLE, WITHOUT STATUS | | | | [place] | | + + + + | [...] 00:00 | Pain of right upper | [facility] | | | extremity | | + + + + | 2022-11-13 00:00 | Pain of right upper | [facility] | | | extremity | | + [...] + + | 2022-11-13 11:38 | OTHER [facility]DC (CURRENT) | [facility] | | | DRUG [...] 2022-12-21 00:00 | Viral upper respiratory | [facility] | | | tract infection | | [...] + + | 2022-12-21 11:29 | OTHER [facility] (CURRENT) | [facility] | | | DRUG [...] (missing) | | (unavailable | 17:19:07 | [facility] | | | | | ) | [...] (missing) | | (unavailable | 12:41:07 | [facility] | | | | | ) | [...]
[~2023-02-15 14:05] MED LIST changes: +SUDAFED 12-HOU120 MG PO
[2023-02-15 17:16] VITALS: BP 140/68
== END 2023-02-15 17:17 | disposition home or self-care (01) ==
LOC: ED 14:05
DX: S50.11XA Contusion of right forearm, initial encounter (principal); R51.9 Headache, unspecified; J45.909 Unspecified asthma, uncomplicated; E78.00 Pure hypercholesterolemia, unspecified; F41.9 Anxiety disorder, unspecified; F32.A Depression, unspecified; Z79.899 Other long term (current) drug therapy; Z79.51 Long term (current) use of inhaled steroids; Z88.0 Allergy status to penicillin; Z88.5 Allergy status to narcotic agent; Z87.891 Personal history of nicotine dependence; W50.3XXA Accidental bite by another person, initial encounter
CPT/HCPCS: 99283; A9270

== ENCOUNTER 2023-04-15 18:30 | Emergency (ER) | payer OTHER ==
[~2023-04-15] VITALS: Ht 152.4 cm; Wt 122.1 kg
[2023-04-15] MEDS ORDERED: FLUTICASONE PRO16 GM NAS (18:43)
[2023-04-15] MEDS ORDERED: MONTELUKAST SOD10 MG PO (18:43)
[2023-04-15] MEDS ORDERED: SERTRALINE HCL50 MG PO (18:43)
[2023-04-15] MEDS ORDERED: PROPRANOLOL HCL10 MG PO (18:43)
[2023-04-15] MEDS ORDERED: SUMATRIPTAN SUC50 MG PO (18:44)
[2023-04-15 19:27] LABS: BASOPHILS 0.6 % (0-2); EOSINOPHILS 3.5 % (0-6); HEMATOCRIT 39.8 % (35.0-50.0); HEMOGLOBIN 13.5 g/dL (12.0-18.0); LYMPHOCYTES 31.2 % (24-44); MCH 29.3 (27-36); MCHC 33.9 g/dl (30-36); MCV 86.4 fl (81-99); NEUTROPHILS 59.7 % (39-80); PLATELET COUNT 336 K/uL (140-440); RDW 14.2 (10.5-15.0)
[2023-04-15 19:37] LABS: PROTIME 12.8 Sec (11.2-14.2)
[2023-04-15 19:42] LABS: ALBUMIN 3.6 g/dL (3.4-5.0); ALBUMIN/GLOBULIN RATIO 1.03 (1.1-2.4); ANION GAP 9.8 (7-21); BILIRUBIN, TOTAL 0.3 ng/dL (0.2-1.0); BUN/CREATININE RATIO 23.59 (6.0-28.6); CALCIUM 9.1 mg/dL (8.5-10.1); CREATININE, SERUM 0.89 mg/dL (0.55-1.02); POTASSIUM 3.8 mmol/L (3.5-5.1); PROTEIN, TOTAL 7.1 g/dL (6.4-8.2)
[2023-04-15 19:45] LABS: PARTIAL THROMBOPLASTIN TIME 27.9 Sec (22.9-41.3)
[2023-04-15 20:19] VITALS: BP 126/78
== END 2023-04-15 20:20 | disposition home or self-care (01) ==
LOC: ED 18:30
PROVIDERS: Internal Medicine
DX: S80.12XA Contusion of left lower leg, initial encounter (principal); S80.11XA Contusion of right lower leg, initial encounter; X58.XXXA Exposure to other specified factors, initial encounter; J45.909 Unspecified asthma, uncomplicated; Z87.891 Personal history of nicotine dependence; Z88.0 Allergy status to penicillin; Z88.5 Allergy status to narcotic agent; Z79.899 Other long term (current) drug therapy
CPT/HCPCS: 36415; 80053; 85025; 85610; 85730

== ENCOUNTER 2023-06-02 11:01 | Emergency (ER) | payer OTHER ==
[~2023-06-02] VITALS: Ht 152.4 cm; Wt 126.8 kg
[~2023-06-02 11:01] MED LIST changes: +MONTELUKAST SOD10 MG PO; +PROPRANOLOL HCL10 MG PO; +SERTRALINE HCL50 MG PO; +SUMATRIPTAN SUC50 MG PO
[2023-06-02 12:02] LABS: INFLUENZA B NAA NEGATIVE (NEGATIVE); RESPIRATORY SYNCYTIAL VIR NAA NEGATIVE (NEGATIVE)
[2023-06-02 13:31] VITALS: BP 146/98
== END 2023-06-02 13:31 | disposition home or self-care (01) ==
LOC: ED 11:01
PROVIDERS: Emergency Medicine
DX: J06.9 Acute upper respiratory infection, unspecified (principal); J45.909 Unspecified asthma, uncomplicated; Z20.822 Contact with and (suspected) exposure to COVID-19; Z87.891 Personal history of nicotine dependence; Z88.0 Allergy status to penicillin; Z88.5 Allergy status to narcotic agent; Z79.899 Other long term (current) drug therapy
CPT/HCPCS: 71045; 87502; 94640; C9803; U0002

== ENCOUNTER 2023-07-07 17:36 | Emergency (ER) | payer OTHER ==
[~2023-07-07] VITALS: Ht 152.4 cm; Wt 128.1 kg
[2023-07-07 18:59] LABS: BASOPHILS 0.6 % (0-2); EOSINOPHILS 0.4 % (0-6); HEMATOCRIT 42.2 % (35.0-50.0); HEMOGLOBIN 13.7 g/dL (12.0-18.0); LYMPHOCYTES 17.6 % (24-44); MCH 28.1 (27-36); MCHC 32.5 g/dl (30-36); MCV 86.4 fl (81-99); NEUTROPHILS 77.4 % (39-80); PLATELET COUNT 407 K/uL (140-440); RBC 4.88 M/ul (4.3-5.7); RDW 14.2 (10.5-15.0)
[2023-07-07 19:14] LABS: ALBUMIN 3.5 g/dL (3.4-5.0); ALBUMIN/GLOBULIN RATIO 0.95 (1.1-2.4); ALKALINE PHOSPHATASE 55 U/L (46-116); ALT (SGPT) 38 U/L (14-59); ANION GAP 12.4 (7-21); AST (SGOT) 14 U/L (15-37); BILIRUBIN, TOTAL 0.4 ng/dL (0.2-1.0); BUN/CREATININE RATIO 31.11 (6.0-28.6); CALCIUM 8.8 mg/dL (8.5-10.1); CARBON DIOXIDE 29 mmol/L (21-32); CHLORIDE 106 mmol/L (98-107); GLOMERULAR FILTRATION RATE,EST 87 mL/min (>60); MAGNESIUM 2.3 mg/dL (1.8-2.4); POTASSIUM 4.4 mmol/L (3.5-5.1); PROTEIN, TOTAL 7.2 g/dL (6.4-8.2); UREA NITROGEN 28 mg/dL (7-18)
[2023-07-07] MEDS ORDERED: CELEBREX200 MG PO (20:11)
[2023-07-07 20:42] VITALS: BP 143/90
--- NOTE | 2023-07-08 21:14 | EKG ---
[facility] [address] [place] [address] Signed Normal sinus rhythm Normal ECG When compared with ECG of 13-NOV-2022 11:39, No significant change was found Confirmed by DELLA COOPER MD ([id number]) on 07/08/2023 9:14:43 PM Electronically Signed By: DELLA COOPER 07/08/232113 PATIENT NAME: ALONSO MCKEON ANGELICA Electrocardiogram DATE OF : [birth year] PHYSICIAN: DELLA COOPER REPORT #: [id number] REPORT IS CONFIDENTIAL AND NOT TO BE RELEASED WITHOUT AUTHORIZATION
== END 2023-07-07 20:30 | disposition home or self-care (01) ==
LOC: ED 17:36
PROVIDERS: Emergency Medicine
DX: M94.0 Chondrocostal junction syndrome [Tietze] (principal); Z87.891 Personal history of nicotine dependence; Z88.0 Allergy status to penicillin; Z88.5 Allergy status to narcotic agent; Z79.899 Other long term (current) drug therapy
CPT/HCPCS: 36415; 71045; 80053; 83735; 83880; 84484; 85025; 85379; 93005; 93010; 94664; 96374; 99285-25; A9270; J1885

== ENCOUNTER 2024-02-01 17:30 | Emergency (ER) | payer OTHER ==
[~2024-02-01] VITALS: Ht 152.4 cm; Wt 141.6 kg
[~2024-02-01 17:30] MED LIST changes: +CELEBREX200 MG PO
[2024-02-01] MEDS ORDERED: CITALOPRAM HBR10 MG PO (18:52)
[2024-02-01] MEDS ORDERED: AMPHETAMINE SAL20 MG PO (18:52)
[2024-02-01] MEDS ORDERED: KETOROLAC TROMETHAMINE 15 MG/ML VIAL IV ONE (19:00)
[2024-02-01] MEDS ORDERED: ondansetron HCL 4 MG/2 ML VIAL IV PRN (19:00)
[2024-02-01 19:05] LABS: BILIRUBIN, URINE NEGATIVE (negative); BLOOD/HGB, URINE MODERATE (Negative); KETONE, URINE NEGATIVE (Negative); LEUK ESTERASE, URINE NEGATIVE (negative); NITRITE, URINE NEGATIVE (negative); PH, URINE 6.5 (5-7)
[2024-02-01 19:14] LABS: BASOPHILS 1.4 % (0-2); EOSINOPHILS 5.7 % (0-6); HEMATOCRIT 40.7 % (35.0-50.0); HEMOGLOBIN 13.3 g/dL (12.0-18.0); LYMPHOCYTES 34.3 % (24-44); MCH 27.6 (27-36); MCHC 32.6 g/dl (30-36); MCV 84.7 fl (81-99); MONOCYTES 5.1 % (0-12); NEUTROPHILS 53.5 % (39-80); PLATELET COUNT 372 K/uL (140-440); RBC 4.81 M/ul (4.3-5.7); RDW 15.1 (10.5-15.0)
[2024-02-01 19:16] LABS: BACTERIA, URINE 1+ /hpf (negative); CASTS, URINE NONE SEEN \\lpf; COLLECTION TYPE, URINE CLEAN CATCH; CRYSTALS, URINE NONE SEEN (0-1+); EPITHELIAL CELLS, URINE SQUAMOUS 1+ /lpf (0-1+); REFLEX CULTURE, URINE No (No)
[2024-02-01 19:28] LABS: ALBUMIN 3.3 g/dL (3.4-5.0); ALBUMIN/GLOBULIN RATIO 0.89 (1.1-2.4); ANION GAP 11.8 (7-21); BILIRUBIN, TOTAL 0.2 ng/dL (0.2-1.0); BUN/CREATININE RATIO 23.28 (6.0-28.6); CALCIUM 9.2 mg/dL (8.5-10.1); CREATININE, SERUM 0.73 mg/dL (0.55-1.02); POTASSIUM 3.8 mmol/L (3.5-5.1)
[2024-02-01] MEDS ORDERED: LACTATED RINGER'S 1,000 ML IV ONE ×2 (19:30→21:00)
[2024-02-01] MEDS ORDERED: KETOROLAC TROMETHAMINE 30 MG/ML VIAL IV ONE (19:30)
[2024-02-01] MEDS ORDERED: MORPHINE SULFATE 4 MG/ML VIAL IV ONE (21:00)
[2024-02-01] MEDS ORDERED: BACTRIM 400-801 EACH PO (21:24)
[2024-02-01] MEDS ORDERED: ONDANSETRON ODT4 MG PO (21:24)
[2024-02-01] MEDS ORDERED: TRIMETHOPRIM/SULFAMETHOXAZOLE 1 EA TAB PO ONE (21:30)
[2024-02-01] MEDS ORDERED: ONDANSETRON 4 MG HOME.PACK SL ONE (21:30)
[2024-02-01] MEDS ORDERED: DEXAMETHASONE SOD PHOS 10 MG/ML VIAL IV ONE (21:30)
[2024-02-01 21:31] VITALS: BP 131/73
== END 2024-02-01 21:36 | disposition home or self-care (01) ==
LOC: ED 17:30
PROVIDERS: Emergency Medicine
DX: J01.90 Acute sinusitis, unspecified (principal); N39.0 Urinary tract infection, site not specified; J45.909 Unspecified asthma, uncomplicated; E66.01 Morbid (severe) obesity due to excess calories; Z68.44 Body mass index [BMI] 60.0-69.9, adult; Z87.891 Personal history of nicotine dependence; Z88.0 Allergy status to penicillin; Z88.5 Allergy status to narcotic agent; Z79.899 Other long term (current) drug therapy
CPT/HCPCS: 36415; 74176; 80053; 81001; 84703; 85025; 96361; 96374; 96375; 99284-25; A9270; J1100; J1885; J2270; J2405; J7121

== ENCOUNTER 2024-06-19 22:43 | Emergency (ER) | payer OTHER ==
[~2024-06-19] VITALS: Ht 157.5 cm; Wt 142.9 kg
[~2024-06-19 22:43] MED LIST changes: +AMPHETAMINE SAL20 MG PO; +BACTRIM 400-801 EACH PO; +CITALOPRAM HBR10 MG PO; +ONDANSETRON ODT4 MG PO
[2024-06-19] MEDS ORDERED: methylPREDNISolone 4 MG HOME.PACK PO ONE (23:45)
[2024-06-20 00:02] VITALS: BP 149/92
== END 2024-06-20 00:08 | disposition home or self-care (01) ==
LOC: ED 22:43
DX: J45.901 Unspecified asthma with (acute) exacerbation (principal); B34.9 Viral infection, unspecified; Z87.891 Personal history of nicotine dependence; Z88.5 Allergy status to narcotic agent; Z79.899 Other long term (current) drug therapy
CPT/HCPCS: 99283

== ENCOUNTER 2024-08-06 17:05 | Emergency (ER) | payer OTHER ==
[~2024-08-06] VITALS: Ht 157.5 cm; Wt 145.6 kg
[2024-08-06] MEDS ORDERED: CLONIDINE HCL0.1 MG PO (17:31)
[2024-08-06] MEDS ORDERED: TRAZODONE HCL50 MG PO (17:31)
[2024-08-06] MEDS ORDERED: ARIPIPRAZOLE2 MG PO (17:32)
[2024-08-06] MEDS ORDERED: OXYCODONE/APAP 5/325 TAB PO ONE (18:15)
[2024-08-06] MEDS ORDERED: ALBUTEROL SULFATE 0.083% 3 ML VIAL INH ONE (18:45)
[2024-08-06] MEDS ORDERED: DEXAMETHASONE SOD PHOS 10 MG/ML VIAL IM ONE (20:00)
[2024-08-06] MEDS ORDERED: ONDANSETRON 4 MG TAB ODT SL ONE (20:00)
[2024-08-06] MEDS ORDERED: CYCLOBENZAPRINE HCL 10 MG TAB PO ONE (21:00)
[2024-08-06 21:02] VITALS: BP 124/68
== END 2024-08-06 21:01 | disposition home or self-care (01) ==
LOC: ED 17:05
DX: S83.92XA Sprain of unspecified site of left knee, initial encounter (principal); S93.402A Sprain of unspecified ligament of left ankle, initial encounter; M54.6 Pain in thoracic spine; M54.50 Low back pain, unspecified; G43.909 Migraine, unspecified, not intractable, without status migrainosus; J45.909 Unspecified asthma, uncomplicated; E78.00 Pure hypercholesterolemia, unspecified; Z87.891 Personal history of nicotine dependence; Z88.0 Allergy status to penicillin; Z88.5 Allergy status to narcotic agent; Z79.51 Long term (current) use of inhaled steroids; Z79.899 Other long term (current) drug therapy; W00.1XXA Fall from stairs and steps due to ice and snow, initial encounter
CPT/HCPCS: 72128; 72131; 73560; 73610; 84703; 94640; 96372; 99284-25; A9270; J1100

== ENCOUNTER 2024-12-06 00:05 | Emergency (ER) | payer OTHER ==
[~2024-12-06] VITALS: Ht 157.5 cm; Wt 145.9 kg
[~2024-12-06 00:05] MED LIST changes: +ARIPIPRAZOLE2 MG PO; +CLONIDINE HCL0.1 MG PO; +LEVOFLOXACIN750 MG PO; +TRAZODONE HCL50 MG PO
[2024-12-06] MEDS ORDERED: ALBUTEROL/IPRATROPIUM 3 ML NEB INH PRN (00:15)
[2024-12-06] MEDS ORDERED: ALBUTEROL/IPRATROPIUM 3 ML NEB ONE (00:26)
[2024-12-06 00:40] LABS: BASOPHILS 0.8 % (0.1-1.2); EOSINOPHILS 8.4 % (0.7-5.8); HEMATOCRIT 40.8 % (34.1-44.9); LYMPHOCYTES 34.6 % (19.3-51.7); MCH 27.7 PG (25.6-32.2); MCHC 31.9 g/dL (32.2-35.5); MCV 86.8 fL (79.4-94.8); MONOCYTES 5.5 % (4.7-12.5); NEUTROPHILS 50.4 % (34.0-71.1); PLATELET COUNT 343 K/uL (182-369)
[2024-12-06] MEDS ORDERED: methylPREDNISolone SOD SUCC 125 MG/2 ML VIAL IV ONE (01:00)
[2024-12-06] MEDS ORDERED: CEFTRIAXONE SODIUM 2 GM in SODIUM CHLORIDE 0.9% 100 ML IV ONE (01:00)
[2024-12-06 01:05] LABS: ALBUMIN 3.1 g/dL (3.4-5.0); ALBUMIN/GLOBULIN RATIO 0.84 (1.1-2.4); ANION GAP 11.1 (7-21); BILIRUBIN, TOTAL 0.2 mg/dL (0.2-1.0); BUN/CREATININE RATIO 20.73 (6.0-28.6); CREATININE, SERUM 0.82 mg/dL (0.55-1.02); MAGNESIUM 2.2 mg/dL (1.8-2.4); POTASSIUM 4.1 mmol/L (3.5-5.1); PROTEIN, TOTAL 6.8 g/dL (6.4-8.2)
[2024-12-06 01:32] LABS: LACTIC ACID, BLOOD <0.3 mmol/L (0.4-2.0)
[2024-12-06] MEDS ORDERED: ZITHROMAX250 MG PO (01:56)
[2024-12-06] MEDS ORDERED: IPRAT-ALBUT 0.5-3 ML INH (01:56)
[2024-12-06] MEDS ORDERED: PREDNISONE20 MG PO (01:56)
[2024-12-06] MEDS ORDERED: AZITHROMYCIN 250 MG TAB PO ONE (02:00)
[2024-12-06] MEDS ORDERED: ALBUTEROL SULFATE 8 GM HOME.PACK INH ONE (02:00)
[2024-12-06 02:20] VITALS: BP 141/76
--- NOTE | 2024-12-06 22:36 | EKG ---
[facility] [address] [place] [address] Signed Normal sinus rhythm Normal ECG When compared with ECG of 07-JUL-2023 17:44, No significant change was found Confirmed by Enoch Buckley MD () on 12/06/2024 10:36:42 PM Electronically Signed By: ENOCH BUCKLEY MD 12/06/24 223 PATIENT NAME: ALONSO MCKEON ANGELICA Electrocardiogram DATE OF : [birth year] PHYSICIAN: ENOCH BUCKLEY MD REPORT #: [id number] REPORT IS CONFIDENTIAL AND NOT TO BE RELEASED WITHOUT AUTHORIZATION
== END 2024-12-06 02:21 | disposition home or self-care (01) ==
LOC: ED 00:05
PROVIDERS: Internal Medicine
DX: J45.901 Unspecified asthma with (acute) exacerbation (principal); J18.9 Pneumonia, unspecified organism; F43.10 Post-traumatic stress disorder, unspecified; Z87.891 Personal history of nicotine dependence; Z88.0 Allergy status to penicillin; Z88.5 Allergy status to narcotic agent
CPT/HCPCS: 36415; 71045; 80053; 83605; 83735; 83880; 84484; 84703; 85025; 85379; 87040; 93005; 93010; 94640; 94667; 96374; 96375; 99285-25; J0696; J2919

== ENCOUNTER 2025-02-13 15:05 | Emergency (ER) | payer OTHER ==
[~2025-02-13] VITALS: Ht 157.5 cm; Wt 149.7 kg
--- OUTSIDE RECORDS SUMMARY | ~2025-02-13 | XMS | Continuity of Care Document ---
Demographics + + + | Address | [address] | | | [place] [address] | + + + | Preferred Language | Unknown | + + + | Marital Status | Never | + + + | Baptism Affiliation | Rastafari | + + + | Race | White | + + + | Ethnic Group | Unknown | + + + Author + + + | Author | [facility] | + + + | Organization | [facility] | + + + | Address | [address] | | | [place] [address] | + + + | Phone | | + + + Care Team Providers + + + + | Care Instructor Warper Name | Role | Phone | + + + + Unavailable | Unavailable | + + + + Unavailable | Unavailable | + + + + Allergies No information. Encounters No information. Functional Status No information. Immunizations No information. Medications No information. Problems + + + + | date | description | facility | + + + + | 2025-01-25 01:58:54 | Shortness of Breath | [facility] | | | | [facility] | + + + + | 2025-01-25 02:01:26 | Shortness of Breath | [facility] | | | | [facility] | + + + + | 2025-01-25 02:01:58 | Shortness of Breath | [facility] | | | | [facility] | + + + + | 2025-01-25 03:07:04 | Unspecified asthma with | [facility] | | | (acute) exacerbation (HCC) | [facility] | + + + + | 2025-01-25 03:07:54 | Unspecified asthma with | [facility] | | | (acute) exacerbation (HCC) | [facility] | + + + + | 2025-01-25 03:15:22 | Unspecified asthma with | [facility] | | | (acute) exacerbation (HCC) | [facility] | + + + + | 2025-01-27 14:11:57 | Unspecified asthma with | [facility] | | | (acute) exacerbation (HCC) | [facility] | + + + + | 2025-01-27 14:12:32 | Unspecified asthma with | [facility] | | | (acute) exacerbation (HCC) | [facility] | + + + + Procedures No information. Results/Labs No information. Social History +--------+ + + | date | description | facility | +--------+ + + Vital Signs No information."
[~2025-02-13 15:05] MED LIST changes: +ZITHROMAX250 MG PO
[2025-02-13] MEDS ORDERED: ALBUTEROL/IPRATROPIUM 3 ML NEB INH ONE (15:15)
[2025-02-13 15:35] LABS: BASOPHILS 0.6 % (0.1-1.2); EOSINOPHILS 8.8 % (0.7-5.8); LYMPHOCYTES 33.2 % (19.3-51.7); MCH 27.2 PG (25.6-32.2); MCHC 31.0 g/dL (32.2-35.5); MCV 87.7 fL (79.4-94.8); MONOCYTES 6.1 % (4.7-12.5); NEUTROPHILS 51.1 % (34.0-71.1); RBC 4.63 M/uL (3.93-5.22)
[2025-02-13 15:51] LABS: ALT (SGPT) 37.0 U/L (14-59); AST (SGOT) 16.0 U/L (15-37); GLOMERULAR FILTRATION RATE,EST 119.0 mL/min (>60); PROTEIN, TOTAL 7.1 g/dL (6.4-8.2); UREA NITROGEN 18.0 mg/dL (7-18)
[2025-02-13] MEDS ORDERED: KETOROLAC TROMETHAMINE 15 MG/ML VIAL IV ONE (16:30)
[2025-02-13] MEDS ORDERED: METHYLPREDNISOLO4 M1 PO (16:32)
[2025-02-13 17:10] VITALS: BP 129/81
== END 2025-02-13 17:10 | disposition home or self-care (01) ==
LOC: ED 15:05
PROVIDERS: Emergency Medicine
DX: J45.901 Unspecified asthma with (acute) exacerbation (principal); E78.00 Pure hypercholesterolemia, unspecified; Z87.891 Personal history of nicotine dependence; Z88.0 Allergy status to penicillin; Z91.018 Allergy to other foods; Z88.5 Allergy status to narcotic agent; Z79.899 Other long term (current) drug therapy
CPT/HCPCS: 36415; 71045; 80053; 85025; 85379; 94640; 96374; 96375; 99285-25; J1885; J2919

== ENCOUNTER 2025-05-20 12:34 | Emergency (ER) | payer OTHER ==
[~2025-05-20] VITALS: Ht 157.5 cm; Wt 158.6 kg
[2025-05-20] MEDS ORDERED: ALBUTEROL/IPRATROPIUM 3 ML NEB INH PRN (13:00)
[2025-05-20] MEDS ORDERED: predniSONE 20 MG TAB PO ONE (13:00)
[2025-05-20 13:19] LABS: BASOPHILS 0.5 % (0.1-1.2); EOSINOPHILS 5.9 % (0.7-5.8); LYMPHOCYTES 31.7 % (19.3-51.7); MCH 27.6 PG (25.6-32.2); MCHC 31.1 g/dL (32.2-35.5); MCV 89.0 fL (79.4-94.8); MONOCYTES 6.3 % (4.7-12.5); NEUTROPHILS 55.4 % (34.0-71.1); RBC 4.63 M/uL (3.93-5.22)
[2025-05-20 13:43] LABS: ALT (SGPT) 31.0 U/L (14-59); AST (SGOT) 12.0 U/L (15-37); GLOMERULAR FILTRATION RATE,EST 111.0 mL/min (>60); PROTEIN, TOTAL 7.0 g/dL (6.4-8.2); UREA NITROGEN 17.0 mg/dL (7-18)
[2025-05-20] MEDS ORDERED: ALBUTEROL/IPRATROPIUM 3 ML NEB INH ONE (14:00)
[2025-05-20] MEDS ORDERED: VENTOLIN HFA18 GM INH (14:35)
[2025-05-20] MEDS ORDERED: PREDNISONE20 MG PO (14:35)
[2025-05-20 14:58] VITALS: BP 141/80
--- NOTE | 2025-05-21 22:33 | EKG ---
[facility] [address] [place] [address] Signed Sinus tachycardia Cannot rule out Anterior infarct , age undetermined Abnormal ECG When compared with ECG of 06-DEC-2024 00:10, No significant change was found Confirmed by Enoch Buckley MD () on 05/21/2025 10:33:41 PM Electronically Signed By: ENOCH BUCKLEY MD 05/21/[id number] PATIENT NAME: MIKEALONSOSHIRA DOMINGUEZ Electrocardiogram DATE OF : [birth year] PHYSICIAN: ENOCH BUCKLEY MD REPORT #: [id number] REPORT IS CONFIDENTIAL AND NOT TO BE RELEASED WITHOUT AUTHORIZATION
== END 2025-05-20 14:58 | disposition home or self-care (01) ==
LOC: ED 12:34
PROVIDERS: Emergency Medicine
DX: J45.909 Unspecified asthma, uncomplicated (principal); Z87.891 Personal history of nicotine dependence; F43.10 Post-traumatic stress disorder, unspecified; Z88.0 Allergy status to penicillin; Z88.8 Allergy status to other drugs, medicaments and biological substances
CPT/HCPCS: 36415; 71045; 80053; 83735; 83880; 84484; 84703; 85025; 93005; 93010; 94640; 99285-25; J7512